=== PATIENT | female | born 1950 | race Asian ===

== ENCOUNTER 2016-11-01 10:46 | Emergency (ER) | payer OTHER ==
[2016-11-01 10:53] VITALS: BP 131/63; PULSE 72; TEMP 98.4; BMI 27.4
[2016-11-01] MEDS ORDERED: KETOROLAC TROMETHAMINE 30 MG/1 ML VIAL IM ONE (11:21)
[2016-11-01] MEDS ORDERED: diazePAM 2 MG TABLET PO ONE (11:21)
--- NOTE | 2016-11-01 11:30 | PDOC ---
History of Present Illness - General Chief Complaint: Back Pain Stated Complaint: BACK PAIN Time Seen by Provider: 11/01/16 11:06 History Source: Patient Exam Limitations: No Limitations - History of Present Illness Initial Comments: 11/01/16 11:25 66 yr female with c/o low back pain since yesterday after lifting something heavy yesterday. Pt has history of low back pain. Pt denies urinary or bowel dysfunction. Pt states pain is worse with sitting to standing, and walking. Occurred: reports: yesterday Severity: reports: moderate Pain Location: reports: back Method of Injury: Yes: other (bent over lifited heavy box) Past History - Past Medical History Allergies/Adverse Reactions: Allergies Allergy/AdvReac Type Severity Reaction Status Date / Time Penicillins Allergy Severe Swelling Verified 11/01/16 10:50 Home Medications: Ambulatory Orders Aspirin [ASA -] 81 mg PO HS 08/07/15 Insulin Glargine,Hum.rec.anlog [Lantus Solostar PEN (NF)] 40 units SQ HS Simvastatin [Zocor] 80 mg PO HS 08/07/15 Enalapril Maleate 5 mg PO HS 04/02/16 Famotidine [Pepcid] 20 mg PO BID #60 tablet 04/02/16 Insulin Lispro [Humalog] 5 unit SQ AM 04/02/16 Diazepam [Valium] 5 mg PO Q8H PRN #15 tablet MDD 15mg 11/01/16 Naproxen [Naprosyn -] 500 mg PO BID PRN #14 tablet 11/01/16 Diabetes: Yes HTN: Yes Hypercholesterolemia: Yes - Psycho/Social/Smoking Cessation Hx Anxiety: No Suicidal Ideation: No Smoking History: Never smoked Have you smoked in the past 12 months: No Information on smoking cessation initiated: No Hx Alcohol Use: No Drug/Substance Use Hx: No Substance Use Type: None Trauma Specific PMHX - Complaint Specific PMHX Arthritis: No Back Injury: (occasional back pain ) Review of Systems - Review of Systems Able to Perform ROS?: Yes Is the patient limited Sinhala proficient: No Constitutional: No: Symptoms Reported HEENTM: No: Symptoms Reported Respiratory: No: Symptoms reported Cardiac (ROS): No: Symptoms Reported, Lightheadedness ABD/GI: No: Symptoms Reported : No: Symptoms Reported Musculoskeletal: Yes: See HPI, Back Pain *Physical Exam - Vital Signs Last Vital Signs Temp Pulse Resp BP Pulse Ox 98.4 F 72 18 131/63 100 11/01/16 10:51 11/01/16 10:51 11/01/16 10:51 11/01/16 10:51 11/01/16 10:51 - Physical Exam General Appearance: Yes: Nourished, Appropriately Dressed HEENT: positive: EOMI, DALE, Normal ENT Inspection, TMs Normal, Pharynx Normal Neck: positive: Supple Respiratory/Chest: positive: Lungs Clear, Normal Breath Sounds Cardiovascular: positive: Regular Rhythm, Regular Rate Gastrointestinal/Abdominal: positive: Normal Bowel Sounds, Soft. negative: Tender Rectal Exam: positive: deferred Musculoskeletal: positive: Normal Inspection, Decreased Range of Motion, Muscle Spasm (lumbar paraspnal left side, no vetebral tendnerness), Other (lumbar paraspinal soft tissue tender to touch, reproducable with pain ). negative: CVA Tenderness, CVA Tenderness (R), CVA Tenderness (L), Vertebral Tenderness Extremity: positive: Normal Capillary Refill, Normal Inspection, Normal Range of Motion Integumentary: positive: Normal Color, Dry, Warm Neurologic: positive: Fully Oriented, Alert, Normal Mood/Affect, Normal Response , Motor Strength 5/5 Medical Decision Making - Medical Decision Making 11/01/16 11:32 cc: low back pain after lifting something heavy bending forward. neg numbness or tingling, neg urine or bowel dysfunction will give toradol and valium pt is with her son who is driving. 11/01/16 12:02 a urine collection was sent with her label on it, the result of the urine in this document is not this patients urine. I had canceled the urine and the sample had been sent already. 11/01/16 12:04 pain reproduced with standing up from the wheel chair, no abd pain neg saddle anesthesia 11/01/16 18:58 *DC/Admit/Observation/Transfer Diagnosis at time of Disposition: Back pain at L4-L5 level - Discharge Dispostion Disposition: HOME Condition at time of disposition: Good - Prescriptions Prescriptions: Naproxen [Naprosyn -] 500 mg PO BID PRN #14 tablet PRN Reason: Back Pain Diazepam [Valium] 5 mg PO Q8H PRN #15 tablet MDD 15mg PRN Reason: Muscle Spasms - Referrals Referrals: Seb De Anda MD [Primary Care Provider] - - Patient Instructions Additional Instructions: please follow with your primary care doctor on Friday for follow up take the medication as prescribed apply warm compresses to lower back , this can help with muscle spasm and pain avoid any heavy lifting and bending, make sure you walk frequently do not lie down for long periods of time
[2016-11-01 11:31] LABS: URINE APPEARANCE CLEAR; URINE BILIRUBIN NEGATIVE (NEGATIVE); URINE COLOR STRAW; URINE GLUCOSE (UA) NEGATIVE (NEGATIVE); URINE KETONE NEGATIVE (NEGATIVE); URINE LEUK ESTERASE NEGATIVE (NEGATIVE); URINE NITRITE NEGATIVE (NEGATIVE); URINE PROTEIN NEGATIVE (NEGATIVE); URINE UROBILINOGEN NEGATIVE mg/dL (0.2-1.0)
[2016-11-01 11:37] LABS: URINE BLOOD 2+ (NEGATIVE)
[2016-11-01 11:41] LABS: URINE MUCUS RARE; URINE RBC 1 /hpf (0-3); URINE WBC 1 /hpf (3-5)
[2016-11-01] MEDS ORDERED: KETOROLAC TROMETHAMINE 60 MG/2 ML VIAL ONE (11:44)
[2016-11-01] MEDS ORDERED: diazePAM 5 MG TABLET ONE (11:44)
[2016-11-01] MEDS ORDERED: KETOROLAC TROMETHAMINE 60 MG/2 ML VIAL IM ONE (11:56)
[2016-11-01] MEDS ORDERED: diazePAM 5 MG TABLET PO ONE (11:56)
== END 2016-11-01 12:11 | disposition home or self-care (01) ==
LOC: JERFT 10:46
PROC: 3E0233Z Introduction of Anti-inflammatory into Muscle, Percutaneous Approach (ICD-10-PCS; principal; 2016-11-01)
DX: M54.5 Low back pain (principal); X50.0XXA Overexertion from strenuous movement or load, initial encounter; X50.9XXA Other and unspecified overexertion or strenuous movements or postures, initial encounter; Y93.89 Activity, other specified; Y92.89 Other specified places as the place of occurrence of the external cause; I10 Essential (primary) hypertension; E78.00 Pure hypercholesterolemia, unspecified; E11.9 Type 2 diabetes mellitus without complications; Z79.4 Long term (current) use of insulin
CPT/HCPCS: 81003; 81015; 96372; 99281-25

== ENCOUNTER 2017-02-06 11:06 | Emergency (ER) | payer OTHER ==
[2017-02-06 11:21] VITALS: BP 136/56; PULSE 84; TEMP 98.4; BMI 27.4
[2017-02-06] MEDS ORDERED: KETOROLAC TROMETHAMINE 30 MG/1 ML VIAL IM ONE (12:45)
[2017-02-06] MEDS ORDERED: KETOROLAC TROMETHAMINE 30 MG/1 ML VIAL ONE (12:54)
[2017-02-06 13:04] LABS: MCH 29.9 pg (25.7-33.7); MCHC 33.1 g/dl (32.0-36.0); MEAN CELL VOLUME 90.4 fl (80-96); MEAN PLT VOLUME 7.5 fl (7.5-11.1); PLATELET COUNT 292 K/MM3 (134-434); RDW 13.7 % (11.6-15.6); WHITE BLOOD COUNT 9.1 K/mm3 (4.0-10.0)
--- NOTE | 2017-02-06 13:20 | PDOC ---
History of Present Illness - General Chief Complaint: Pain, Acute Stated Complaint: BACK/LEG PAIN Time Seen by Provider: 02/06/17 12:20 History Source: Patient Exam Limitations: No Limitations - History of Present Illness Initial Comments: 02/06/17 13:07 66 yr female with c/o right hip, right knee and right lower leg pain. Pt states she has had this for "months" c/o numbness or tingling to her leg at night has history of diabetic neuropathy. Pt denies trauma no abd pain or shortness of breath. no urine or bowel dysfunction. Past History - Past Medical History Allergies/Adverse Reactions: Allergies Allergy/AdvReac Type Severity Reaction Status Date / Time Penicillins Allergy Severe Swelling Verified 02/06/17 11:19 Home Medications: Ambulatory Orders Aspirin [ASA -] 81 mg PO HS 08/07/15 Insulin Glargine,Hum.rec.anlog [Lantus Solostar PEN (NF)] 40 units SQ HS Simvastatin [Zocor] 80 mg PO HS 08/07/15 Enalapril Maleate 5 mg PO HS 04/02/16 Famotidine [Pepcid] 20 mg PO BID #60 tablet 04/02/16 Insulin Lispro [Humalog] 5 unit SQ AM 04/02/16 Diazepam [Valium] 5 mg PO Q8H PRN #15 tablet MDD 15mg 11/01/16 Naproxen [Naprosyn -] 500 mg PO BID PRN #14 tablet 02/06/17 Diabetes: Yes HTN: Yes Hypercholesterolemia: Yes - Suicide/Smoking/Psychosocial Hx Smoking History: Never smoked Have you smoked in the past 12 months: No Hx Alcohol Use: No Drug/Substance Use Hx: No Substance Use Type: None *Physical Exam - Vital Signs Last Vital Signs Temp Pulse Resp BP Pulse Ox 98.4 F 84 19 136/56 99 02/06/17 11:19 02/06/17 11:19 02/06/17 11:19 02/06/17 11:19 02/06/17 11:19 - Physical Exam General Appearance: Yes: Nourished, Appropriately Dressed HEENT: positive: EOMI, DALE, Normal ENT Inspection, TMs Normal, Pharynx Normal Neck: positive: Supple. negative: Tender Respiratory/Chest: positive: Lungs Clear, Normal Breath Sounds Cardiovascular: positive: Regular Rhythm, Regular Rate Gastrointestinal/Abdominal: positive: Normal Bowel Sounds, Soft Musculoskeletal: positive: Normal Inspection. negative: Decreased Range of Motion, Vertebral Tenderness Extremity: positive: Normal Capillary Refill, Normal Inspection, Normal Range of Motion, Other (pain with SLR left side , no vetebral tenderness) Integumentary: positive: Normal Color, Dry, Warm Neurologic: positive: Fully Oriented, Alert, Normal Mood/Affect, Normal Response , Motor Strength 08/23 ED Treatment Course - LABORATORY CBC & Chemistry Diagram: 02/06/17 13:00 02/06/17 13:00 - RADIOLOGY Radiology Studies Ordered: Category Date Time Status HIP & PELVIS-RIGHT [RAD] Stat Radiology 02/06/17 12:45 Ordered KNEE 3 POS-RIGHT [RAD] Stat Radiology 02/06/17 12:45 Ordered DUPLEX VASCUL US-1 LEG [US] Stat Ultrasound 02/06/17 12:46 Ordered - Medications Given in the ED: ED Medications Discontinued Medications Generic Name Dose Route Start Last Admin Trade Name Freq PRN Reason Stop Dose Admin Ketorolac Tromethamine 30 mg 02/06/17 12:45 02/06/17 13:00 Toradol Injection - IM 02/06/17 12:46 30 mg ONCE ONE Administration Medical Decision Making - Medical Decision Making 02/06/17 13:28 cc: right hip pain, knee pain calf pain no deformity , no swelling history of IDDM will get xrays to r/o fracture US is negative xrays are negative for acute fracture or pathology. pt states her pain has improved after toradol, is ambulating steady gait dc inst verbally discussed with the pt all questions asked and answered. Pt is to see her PMD tomorrow. 02/06/17 18:10 *DC/Admit/Observation/Transfer Diagnosis at time of Disposition: Leg pain Qualifiers: Laterality: right Qualified Code(s): M79.604 - Pain in right leg - Discharge Dispostion Disposition: HOME Condition at time of disposition: Good - Prescriptions Prescriptions: Naproxen [Naprosyn -] 500 mg PO BID PRN #14 tablet PRN Reason: Back Pain - Referrals Referrals: Seb De Anda MD [Primary Care Provider] - - Patient Instructions Additional Instructions: please follow with your primary care doctor for follow up tomorrow or Friday take naprosyn as directed for pain try to place warm heating pad to the lower legs to help with night time numbness and tingling
[2017-02-06 13:31] LABS: ALBUMIN 3.8 g/dl (3.4-5.0); ANION GAP 5 (8-16); BILIRUBIN,TOTAL 0.3 mg/dL (0.2-1.0); CO2 30 mmol/L (21-32); CREATININE 0.8 mg/dL (0.55-1.02); GLUCOSE,RANDOM 153 mg/dL (74-106); SGOT/AST 26 U/L (15-37); SGPT/ALT 32 U/L (12-78); TOT PROT 8.1 g/dl (6.4-8.2)
[2017-02-06 13:32] LABS: ALK PHOS 70 U/L (45-117)
== END 2017-02-06 15:39 | disposition home or self-care (01) ==
LOC: JERFT 11:06
PROC: 3E0233Z Introduction of Anti-inflammatory into Muscle, Percutaneous Approach (ICD-10-PCS; principal; 2017-02-06)
DX: M79.604 Pain in right leg (principal)
CPT/HCPCS: 36415; 73523-TC; 73562-TC-RT; 80053; 85027; 93971-TC; 99281-25

== ENCOUNTER 2017-05-11 11:53 | Emergency (ER) | payer OTHER ==
[2017-05-11 12:42] VITALS: BMI 27.4
--- NOTE | 2017-05-11 12:45 | PDOC ---
History of Present Illness - General Chief Complaint: Cold Symptoms Stated Complaint: SHOULDER PAIN, BODYACHES Time Seen by Provider: 05/11/17 12:43 History Source: Patient Exam Limitations: No Limitations - History of Present Illness Initial Comments: CHIEF COMPLAINT: 67 y/o febrile, tachycardic female with PMH HTN, HLD, CAD (on aspirin), IDDM c/o chest pain, jaw pain and runny nose x 3 days. HISTORY OF PRESENT ILLNESS: The patient states she also has left arm pain. She denies fever/chills at home, cough, n/v/d, SOB, abd pain, back pain. She finished a prescription for cipro to treat a UTI 3 days ago but she continues to complain of pain with urination. PCP is Dr. De Anda Manufacturing Process Engineer is Dr. Moyer. Vital signs on arrival are notable for pulse of 112 secondary to temp of 102.6. REVIEW OF SYSTEMS: GENERAL/CONSTITUTIONAL: No fever/chills. No weakness. No weight change. HEAD, EYES, EARS, NOSE AND THROAT: No change in vision. +jaw pain. No sore throat. +runny nose CARDIOVASCULAR: +chest pain. No shortness of breath. RESPIRATORY: No cough, wheezing, or hemoptysis. GASTROINTESTINAL: No nausea, vomiting, diarrhea. GENITOURINARY: +dysuria. No frequency or hematuria. MUSCULOSKELETAL: +left shoulder pain. No neck or back pain. SKIN: No rash or easy bruising. NEUROLOGIC: No headache, vertigo, loss of consciousness, or loss of sensation. PHYSICAL EXAM: GENERAL: The patient is awake, alert, and fully oriented, in no acute distress. She is non toxic appearing and ambulatory. HEAD: Normal with no signs of trauma. ENT: Pupils equal, round and reactive to light, extraocular movements intact, sclera anicteric, conjunctiva clear. Neck supple. LUNGS: Clear to auscultation bilaterally. Normal excursion. No respiratory distress or use of accessory muscles. CV: tachycardic with regular rhythm, S1/S2, no MRG. Cap refill < 2 sec. ABDOMEN: Soft, non-distended, no hepatomegaly or splenomegaly, no masses. TTP of RLQ and LLQ. No rebound, guarding or rigidity. EXTREMITIES: Normal range of motion, no edema. NEUROLOGICAL: Normal speech, normal gait. CN II-XII grossly intact. PSYCH: Normal mood, normal affect. SKIN: Warm, dry, normal turgor, no rashes or lesions noted. Past History - Past Medical History Allergies/Adverse Reactions: Allergies Allergy/AdvReac Type Severity Reaction Status Date / Time Penicillins Allergy Severe Swelling Verified 05/11/17 12:39 Home Medications: Ambulatory Orders Aspirin [ASA -] 81 mg PO HS 08/07/15 Insulin Glargine,Hum.rec.anlog [Lantus Solostar PEN (NF)] 40 units SQ HS Simvastatin [Zocor] 80 mg PO HS 08/07/15 Enalapril Maleate 5 mg PO HS 04/02/16 Famotidine [Pepcid] 20 mg PO BID #60 tablet 04/02/16 Insulin Lispro [Humalog] 5 unit SQ AM 04/02/16 Diazepam [Valium] 5 mg PO Q8H PRN #15 tablet MDD 15mg 11/01/16 Naproxen [Naprosyn -] 500 mg PO BID PRN #14 tablet 02/06/17 COPD: No Diabetes: Yes HTN: Yes Hypercholesterolemia: Yes - Suicide/Smoking/Psychosocial Hx Smoking History: Never smoked Have you smoked in the past 12 months: No Information on smoking cessation initiated: No Hx Alcohol Use: No Drug/Substance Use Hx: No Substance Use Type: None *Physical Exam - Vital Signs Last Vital Signs Temp Pulse Resp BP Pulse Ox 102.6 F H 112 H 18 148/87 100 05/11/17 12:39 05/11/17 12:39 05/11/17 12:39 05/11/17 12:39 05/11/17 12:39 Heart Score/ECG Review - ECG Intrepretation Comment:: Twelve-lead EKG was performed and reviewed by Dr. Gillette. There is sinus tachycardia. The axis is normal. The intervals are normal. Non specific ST and T wave abnormality. Impression: Abnormal twelve-lead EKG ED Treatment Course - LABORATORY CBC & Chemistry Diagram: 05/11/17 13:20 05/11/17 13:20 Medical Decision Making - Medical Decision Making A/P: 67 y/o febrile, tachycardic female c/o chest pain, left arm pain, jaw pain and runny nose x 3 days. Will do cardiac workup as well as sepsis work up. Ordered 975mg of tylenol. Influenza A&B - negative CXR IMPRESSION: No acute pathology. I am signing this patient out to my colleague: LJ Zafar In brief, this patient is being seen in the ED for a chief complaint of: chest pain, left shoulder pain, jaw pain I have completed the initial assessment interview note and have ordered: labs, UA, CXR, abd/pelvis CT I have reviewed the following results: labs, UA, CXR Pending results are: CT abd/pelvis Please call the PCP: Dr. De Anda Plan for disposition is as follows: Pending *DC/Admit/Observation/Transfer Diagnosis at time of Disposition: Fever Qualifiers: Fever type: unspecified Qualified Code(s): R50.9 - Fever, unspecified - Referrals Referrals: Chriss Roblero MD [Primary Care Provider] - - Patient Instructions - Post Discharge Activity
[2017-05-11] MEDS ORDERED: SODIUM CHLORIDE 1,000 ML IV STA ×2 (13:01→16:43)
[2017-05-11] MEDS ORDERED: ACETAMINOPHEN 325 MG TABLET (FP) PO ONE (13:03)
[2017-05-11] MEDS ORDERED: ACETAMINOPHEN 325 MG TABLET (FP) ONE (13:07)
[2017-05-11 13:40] LABS: BASO % 0.3 % (0-2.0); EOS % 0.2 % (0-4.5); HEMATOCRIT 35.9 % (32.4-45.2); HEMOGLOBIN 11.5 GM/dL (10.7-15.3); LYMPH % 5.5 % (8-40); MCH 29.4 pg (25.7-33.7); MEAN CELL VOLUME 91.9 fl (80-96); MEAN PLT VOLUME 8.2 fl (7.5-11.1); PLATELET COUNT 298 K/MM3 (134-434); RDW 13.9 % (11.6-15.6); WHITE BLOOD COUNT 12.1 K/mm3 (4.0-10.0)
[2017-05-11 14:10] LABS: ALBUMIN 3.7 g/dl (3.4-5.0); ANION GAP 9 (8-16); BILIRUBIN,TOTAL 0.5 mg/dL (0.2-1.0); BLOOD UREA NITROGEN 9 mg/dL (7-18); CHLORIDE 100 mmol/L (98-107); CO2 26 mmol/L (21-32); CREATININE 0.9 mg/dL (0.55-1.02); GLUCOSE,RANDOM 102 mg/dL (74-106); SGPT/ALT 34 U/L (12-78); SODIUM 135 mmol/L (136-145); TOT PROT 8.3 g/dl (6.4-8.2)
[2017-05-11 14:12] LABS: ALK PHOS 65 U/L (45-117)
[2017-05-11 14:13] LABS: POTASSIUM 5.3 mmol/L (3.5-5.1); SGOT/AST 39 U/L (15-37)
--- NOTE | 2017-05-11 16:02 | EKG ---
Test Reason : Blood Pressure : / mmHG Vent. Rate : 107 BPM Atrial Rate : 107 BPM P-R Int : 130 ms QRS Dur : 076 ms QT Int : 314 ms P-R-T Axes : 046 000 025 degrees QTc Int : 419 ms SINUS TACHYCARDIA NONSPECIFIC ST AND T WAVE ABNORMALITY ABNORMAL ECG WHEN COMPARED WITH ECG OF 02-APR-2016 18:37, VENT. RATE HAS INCREASED BY 41 BPM NONSPECIFIC T WAVE ABNORMALITY NOW EVIDENT IN ANTERIOR LEADS Confirmed by Derrick Zamorano ([id number]) on 05/11/2017 4:02:45 PM Referred By: Confirmed By:Derrick Zamorano
[2017-05-11 16:26] LABS: URINE APPEARANCE CLOUDY; URINE BILIRUBIN NEGATIVE (NEGATIVE); URINE BLOOD NEGATIVE (NEGATIVE); URINE COLOR DKYELLOW; URINE GLUCOSE (UA) NEGATIVE (NEGATIVE); URINE KETONE NEGATIVE (NEGATIVE); URINE NITRITE NEGATIVE (NEGATIVE); URINE PROTEIN NEGATIVE (NEGATIVE); URINE UROBILINOGEN NEGATIVE mg/dL (0.2-1.0)
[2017-05-11 16:39] LABS: INR 1.14 (0.82-1.09); PROTHROMBIN TIME (PATIENT) 12.9 SEC (9.98-11.88)
[2017-05-11 17:01] LABS: URINE LEUK ESTERASE 2+ (NEGATIVE)
[2017-05-11 17:02] LABS: EPI CELLS RARE /HPF (FEW); URINE BACTERIA MODERATE /hpf (NONE SEEN); URINE HYALINE CAST 1 /lpf; YEAST FEW
--- NOTE | 2017-05-11 19:32 | PDOC ---
*Physical Exam - Vital Signs Last Vital Signs Temp Pulse Resp BP Pulse Ox 98.3 F 74 18 96/53 97 05/11/17 16:47 05/11/17 16:47 05/11/17 16:47 05/11/17 16:47 05/11/17 16:47 ED Treatment Course - LABORATORY CBC & Chemistry Diagram: 05/11/17 13:20 05/11/17 13:20 - ADDITIONAL ORDERS Additional order review: Laboratory Results 05/11/17 05/11/17 05/11/17 16:10 16:10 16:10 PT with INR 12.90 H INR 1.14 PTT (Actin FS) Sodium Potassium Chloride Carbon Dioxide Anion Gap BUN Creatinine Creat Clearance w eGFR Random Glucose Lactic Acid 1.6 Calcium Total Bilirubin AST ALT Alkaline Phosphatase Creatine Kinase Troponin I Total Protein Albumin Urine Color Urine Appearance Urine pH Ur Specific [place] Urine Protein Urine Glucose (UA) Urine Ketones Urine Blood Urine Nitrite Urine Bilirubin Urine Urobilinogen Ur Leukocyte Esterase Urine WBC (Auto) Urine RBC (Auto) Ur Epithelial Cells Urine Bacteria Hyaline Casts Urine Yeast Blood Type A NEGATIVE Antibody Screen Negative 05/11/17 05/11/17 05/11/17 13:20 13:20 13:20 PT with INR INR PTT (Actin FS) Sodium 135 L Potassium 5.3 H Chloride 100 Carbon Dioxide 26 Anion Gap 9 BUN 9 Creatinine 0.9 Creat Clearance w eGFR > 60 Random Glucose 102 Lactic Acid 2.2 H* Calcium 9.0 Total Bilirubin 0.5 D AST 39 H ALT 34 Alkaline Phosphatase 65 Creatine Kinase 124 Troponin I < 0.02 Total Protein 8.3 H Albumin 3.7 Urine Color Urine Appearance Urine pH Ur Specific [place] Urine Protein Urine Glucose (UA) Urine Ketones Urine Blood Urine Nitrite Urine Bilirubin Urine Urobilinogen Ur Leukocyte Esterase Urine WBC (Auto) Urine RBC (Auto) Ur Epithelial Cells Urine Bacteria Hyaline Casts Urine Yeast Blood Type Cancelled Antibody Screen Cancelled 05/11/17 05/11/17 13:20 13:05 PT with INR Cancelled INR Cancelled PTT (Actin FS) Cancelled Sodium Potassium Chloride Carbon Dioxide Anion Gap BUN Creatinine Creat Clearance w eGFR Random Glucose Lactic Acid Calcium Total Bilirubin AST ALT Alkaline Phosphatase Creatine Kinase Troponin I Total Protein Albumin Urine Color Dkyellow Urine Appearance Cloudy Urine pH 7.0 Ur Specific [place] 1.004 Urine Protein Negative Urine Glucose (UA) Negative Urine Ketones Negative Urine Blood Negative Urine Nitrite Negative Urine Bilirubin Negative Urine Urobilinogen Negative Ur Leukocyte Esterase 2+ H Urine WBC (Auto) 30 Urine RBC (Auto) <1 Ur Epithelial Cells Rare Urine Bacteria Moderate Hyaline Casts 1 Urine Yeast Few Blood Type Antibody Screen 05/11/17 13:05 Influenza Types A,B Antigen (JASS) - Final Nasopharyngeal Swab - Final 05/11/17 13:20 RBC 3.90 MCV 91.9 MCHC 32.0 RDW 13.9 MPV 8.2 Neutrophils % 89.0 H D Lymphocytes % 5.5 L D Monocytes % 5.0 Eosinophils % 0.2 D Basophils % 0.3 - Medications Given in the ED: ED Medications Discontinued Medications Generic Name Dose Route Start Last Admin Trade Name Freq PRN Reason Stop Dose Admin Acetaminophen 975 mg 05/11/17 13:03 05/11/17 13:46 Tylenol - PO 05/11/17 13:04 975 mg ONCE ONE Administration Sodium Chloride 1,000 mls @ 1,000 mls/hr 05/11/17 13:01 05/11/17 13:55 Normal Saline - IV 05/11/17 14:00 1,000 mls/hr ASDIR STA Administration Sodium Chloride 1,000 mls @ 1,000 mls/hr 05/11/17 16:43 05/11/17 16:56 Normal Saline - IV 05/11/17 17:42 1,000 mls/hr ASDIR STA Administration Medical Decision Making - Medical Decision Making 05/11/17 19:57 Rec'd pt from [facility]. CTAP as read by Dr. Toure: Patchy areas of pulmonary consolidation in lung bases bilaterally. Atelectesis vs infiltrate vs both. Probable small calcified granuloma in the right middle lobe. There are colonic diverticula without radiographic evidence of diverticulitis. Previous hysterectomy. No evidence of pneumoperitoneum or free fluid. Radiographic and labratory evidence of CAP. CURB 65 score- 1. Case d/w Dr Phillips who agrees with outpt treatment of CAP. Given pt has mild pyuria, I will treat pt with levofloxacin 500mg daily x10 days. Pt's PMD will re- evaluate in 2 days. *DC/Admit/Observation/Transfer Diagnosis at time of Disposition: Fever Qualifiers: Fever type: unspecified Qualified Code(s): R50.9 - Fever, unspecified Pneumonia Qualifiers: Pneumonia type: due to unspecified organism Laterality: bilateral Lung location : lower lobe of lung Qualified Code(s): J18.9 - Pneumonia, unspecified organism - Discharge Dispostion Disposition: HOME Condition at time of disposition: Stable Admit: No - Prescriptions Prescriptions: Levofloxacin [Levaquin -] 500 mg PO DAILY #10 tablet - Referrals Referrals: Chriss Roblero MD [Primary Care Provider] - - Patient Instructions Additional Instructions: Take levofloxacin 500mg daily for the next 10 days. Take Tylenol or Motrin for fevers or pain. Follow costumer assistant's instructions for dosage. Make an appointment with your doctor for care on FridayMay 13. Return to ER for fevers, chills, shortness of breath, chest pain, nausea, vomiting, or any other concerns. - Post Discharge Activity
[2017-05-11 20:01] VITALS: BP 154/87; PULSE 92; TEMP 98.1
[2017-05-11] MEDS ORDERED: IBUPROFEN 600 MG TABLET (FP) PO ONE ×2 (20:15→20:28)
--- NOTE | 2017-05-12 09:12 | PDOC ---
Patient Follow-up (Call Back) - Post ED Follow - Up Condition at time of discharge: Stable Disposition at time of original discharge: HOME Reason for Call Back: Abnwl. Microbiology (gram neg bacilli on prelim bld cx Pt was discharged w/ bindu for PNA Spoke to pt, has not started bx yet, feeling fatigued Told to return [facility]. Pt states he will come back today)
== END 2017-05-11 21:20 | disposition home or self-care (01) ==
LOC: JER 11:53
PROC: 3E0337Z Introduction of Electrolytic and Water Balance Substance into Peripheral Vein, Percutaneous Approach (ICD-10-PCS; principal; 2017-05-11)
DX: R50.9 Fever, unspecified (principal); I10 Essential (primary) hypertension; E11.9 Type 2 diabetes mellitus without complications; Z79.4 Long term (current) use of insulin; Z79.82 Long term (current) use of aspirin
CPT/HCPCS: 36415; 71045-TC; 74177-TC; 80053; 81003; 81015; 82550; 83605; 84484; 85025; 85610; 86850; 86900; 86901; 87040; 87086; 87186; 87804; 93005; 93010; 96360; 96361; 99283-25

== ENCOUNTER 2017-05-12 09:35 | Inpatient (IN) | payer OTHER ==
[2017-05-12] MEDS ORDERED: ACETAMINOPHEN 325 MG TABLET (FP) PO ONE ×2 (09:44→13:17)
[2017-05-12] MEDS ORDERED: SODIUM CHLORIDE 1,000 ML IV STA (13:16)
--- NOTE | 2017-05-12 13:32 | PDOC ---
History of Present Illness - General Chief Complaint: SIRS, Suspected/Possible Stated Complaint: + bl cultures LAB VARIANCE Time Seen by Provider: 05/12/17 13:14 History Source: Patient - History of Present Illness Associated Symptoms: reports: chest pain/soreness, cough, fever/chills, headache. denies: nasal congestion, shortness of breath, sore throat, wheezing Past History - Past Medical History Allergies/Adverse Reactions: Allergies Allergy/AdvReac Type Severity Reaction Status Date / Time Penicillins Allergy Severe Swelling Verified 05/12/17 09:39 Home Medications: Ambulatory Orders Aspirin [ASA -] 81 mg PO HS 08/07/15 Insulin Glargine,Hum.rec.anlog [Lantus Solostar PEN (NF)] 40 units SQ HS Simvastatin [Zocor] 80 mg PO HS 08/07/15 Enalapril Maleate 5 mg PO HS 04/02/16 Famotidine [Pepcid] 20 mg PO BID #60 tablet 04/02/16 Insulin Lispro [Humalog] 5 unit SQ AM 04/02/16 Diazepam [Valium] 5 mg PO Q8H PRN #15 tablet MDD 15mg 11/01/16 Naproxen [Naprosyn -] 500 mg PO BID PRN #14 tablet 02/06/17 Levofloxacin [Levaquin -] 500 mg PO DAILY #10 tablet 05/11/17 COPD: No Diabetes: Yes HTN: Yes Hypercholesterolemia: Yes - Suicide/Smoking/Psychosocial Hx Smoking History: Never smoked Have you smoked in the past 12 months: No Information on smoking cessation initiated: No Hx Alcohol Use: No Drug/Substance Use Hx: No Substance Use Type: None Review of Systems - Review of Systems Constitutional: Yes: Chills, Fever, Malaise Respiratory: Yes: Cough. No: Shortness of Breath, Wheezing ABD/GI: No: Diarrhea, Nausea, Vomiting Neurological: Yes: Headache *Physical Exam - Vital Signs Last Vital Signs Temp Pulse Resp BP Pulse Ox 101.1 F H 93 H 18 117/61 100 05/12/17 09:40 05/12/17 09:40 05/12/17 09:40 05/12/17 09:40 05/12/17 09:40 - Physical Exam Comments: 05/12/17 13:39 appears uncomfortable General Appearance: Yes: Appropriately Dressed. No: Apparent Distress HEENT: positive: Normal Voice Neck: positive: Supple Respiratory/Chest: positive: Lungs Clear, Normal Breath Sounds. negative: Respiratory Distress Gastrointestinal/Abdominal: positive: Soft. negative: Tender Integumentary: positive: Dry, Warm Neurologic: positive: Fully Oriented, Alert, Normal Mood/Affect ED Treatment Course - LABORATORY CBC & Chemistry Diagram: 05/12/17 13:36 05/12/17 13:36 - RADIOLOGY Radiology Studies Ordered: Category Date Time Status CHEST X-RAY PORTABLE* [RAD] Stat Radiology 05/12/17 13:16 Ordered - Medications Given in the ED: ED Medications Discontinued Medications Generic Name Dose Route Start Last Admin Trade Name Freq PRN Reason Stop Dose Admin Acetaminophen 975 mg 05/12/17 09:44 05/12/17 09:45 Tylenol - PO 05/12/17 09:45 975 mg NOW ONE Administration Medical Decision Making - Medical Decision Making 05/12/17 13:31 67-year-old female, history of hypertension, hyperlipidemia, diabetes, CAD, returns to ED today after being contacted this a.m. with non-lactose fermenting gram-negative bacteria on preliminary blood culture. Patient was seen in ED yesterday for malaise with BUNN, fever and cough and was diagnosed with pneumonia. Was sent home on Levaquin given low CURB-65 score. Pt has not started taking abx and continues to have cough, CP, fever and body aches. Denies SOB. Of note, patient was flu negative yesterday. See exam Sepsis 2/2 PNA Febrile in ED and appears uncomfortable but no e/o resp distress -IV abx -antipyretic -IVF -labs including lactate and rpt bld cx -admit 05/12/17 13:46 05/12/17 14:37 White count 12.9 w/ pO2 of 17 on VBG. Lactate neg. Antibiotics in progress. Case discussed with Dr. Roblero and patient admitted 05/12/17 14:38 *DC/Admit/Observation/Transfer Diagnosis at time of Disposition: Pneumonia Qualifiers: Pneumonia type: due to unspecified organism Laterality: unspecified laterality Lung location: unspecified part of lung Qualified Code(s): J18.9 - Pneumonia, unspecified organism - Discharge Dispostion Condition at time of disposition: Fair Admit: Yes - Referrals Referrals: Chriss Roblero MD [Primary Care Provider] - - Patient Instructions - Post Discharge Activity
[2017-05-12] MEDS ORDERED: METOCLOPRAMIDE HCL INJECTION 10 MG/2 ML VIAL IVPB ONE (13:40)
[2017-05-12] MEDS ORDERED: LEVOFLOXACIN 750 MG IVPB 750 MG/150 ML BAG IVPB ONE ×2 (13:44→14:33)
[2017-05-12] MEDS ORDERED: ACETAMINOPHEN 325 MG TABLET (FP) ONE (13:49)
[2017-05-12 13:50] LABS: VENOUS PC02 50.2 mmHg (38-52); VENOUS PH 7.35 (7.32-7.42)
[2017-05-12] MEDS ORDERED: METOCLOPRAMIDE HCL INJECTION 10 MG/2 ML VIAL ONE (13:50)
[2017-05-12 13:51] LABS: VENOUS PO2 17.6 mmHg (28-48)
[2017-05-12 13:53] LABS: BASO % 0.3 % (0-2.0); EOS % 0.1 % (0-4.5); HEMATOCRIT 33.9 % (32.4-45.2); HEMOGLOBIN 10.9 GM/dL (10.7-15.3); LYMPH % 13.6 % (8-40); MCH 29.9 pg (25.7-33.7); MEAN CELL VOLUME 93.3 fl (80-96); MEAN PLT VOLUME 7.8 fl (7.5-11.1); MONO % 6.1 % (3.8-10.2); NEUT % 79.9 % (42.8-82.8); PLATELET COUNT 261 K/MM3 (134-434); RBC 3.64 M/mm3 (3.60-5.2); RDW 13.9 % (11.6-15.6); WHITE BLOOD COUNT 12.9 K/mm3 (4.0-10.0)
[2017-05-12 14:06] LABS: URINE APPEARANCE CLEAR; URINE BILIRUBIN NEGATIVE (NEGATIVE); URINE BLOOD NEGATIVE (NEGATIVE); URINE COLOR YELLOW; URINE GLUCOSE (UA) NEGATIVE (NEGATIVE); URINE KETONE NEGATIVE (NEGATIVE); URINE LEUK ESTERASE TRACE (NEGATIVE); URINE NITRITE NEGATIVE (NEGATIVE); URINE UROBILINOGEN NEGATIVE mg/dL (0.2-1.0)
[2017-05-12 14:08] LABS: URINE PROTEIN 1+ (NEGATIVE)
[2017-05-12 14:08] LABS: INR 1.27 (0.82-1.09); PROTHROMBIN TIME (PATIENT) 14.3 SEC (9.98-11.88)
[2017-05-12 14:09] LABS: EPI CELLS RARE /HPF (FEW); URINE MUCUS RARE
[2017-05-12 14:11] LABS: ACTIVATED PTT 29.9 SECONDS (26.9-34.4); ALBUMIN 3.3 g/dl (3.4-5.0); ANION GAP 4 (8-16); BLOOD UREA NITROGEN 8 mg/dL (7-18); CHLORIDE 106 mmol/L (98-107); CO2 29 mmol/L (21-32); CREATININE 0.9 mg/dL (0.55-1.02); GLUCOSE,RANDOM 52 mg/dL (74-106); POTASSIUM 3.5 mmol/L (3.5-5.1); SGOT/AST 21 U/L (15-37); SGPT/ALT 29 U/L (12-78); SODIUM 139 mmol/L (136-145)
--- NOTE | 2017-05-12 14:11 | PDOC ---
*Physical Exam - Vital Signs Last Vital Signs Temp Pulse Resp BP Pulse Ox 101.1 F H 93 H 18 117/61 100 05/12/17 09:40 05/12/17 09:40 05/12/17 09:40 05/12/17 09:40 05/12/17 09:40 ED Treatment Course - LABORATORY CBC & Chemistry Diagram: 05/12/17 13:36 05/12/17 13:36 - ADDITIONAL ORDERS Additional order review: Laboratory Results 05/12/17 05/12/17 13:50 13:22 VBG pH 7.35 POC VBG pCO2 50.2 POC VBG pO2 17.6 L* Mixed VBG HCO3 27.1 H Urine Color Yellow Urine Appearance Clear Urine pH 6.0 Ur Specific [place] 1.017 Urine Protein 1+ H Urine Glucose (UA) Negative Urine Ketones Negative Urine Blood Negative Urine Nitrite Negative Urine Bilirubin Negative Urine Urobilinogen Negative Ur Leukocyte Esterase Trace Urine WBC (Auto) 13 Urine RBC (Auto) 1 Ur Epithelial Cells Rare Urine Mucus Rare 05/12/17 13:36 RBC 3.64 MCV 93.3 MCHC 32.0 RDW 13.9 MPV 7.8 Neutrophils % 79.9 Lymphocytes % 13.6 D Monocytes % 6.1 Eosinophils % 0.1 Basophils % 0.3 - Medications Given in the ED: ED Medications Discontinued Medications Generic Name Dose Route Start Last Admin Trade Name Kina PRN Reason Stop Dose Admin Acetaminophen 975 mg 05/12/17 09:44 05/12/17 09:45 Tylenol - PO 05/12/17 09:45 975 mg NOW ONE Administration Acetaminophen 650 mg 05/12/17 13:17 05/12/17 13:54 Tylenol - PO 05/12/17 13:18 650 mg ONCE ONE Administration Metoclopramide HCl 10 mg 05/12/17 13:40 05/12/17 13:55 Reglan Injection - IVPB 05/12/17 13:41 10 mg ONCE ONE Administration Medical Decision Making - Medical Decision Making 05/12/17 14:10 Pt seen by the Advanced Practice Provider under my direct supervision Ancillary studies reviewed I agree with plan as outlined by the Advanced Practice Provider EB Talamantes *DC/Admit/Observation/Transfer Diagnosis at time of Disposition: Pneumonia Qualifiers: Pneumonia type: due to unspecified organism Laterality: unspecified laterality Lung location: unspecified part of lung Qualified Code(s): J18.9 - Pneumonia, unspecified organism - Discharge Dispostion Condition at time of disposition: Fair - Referrals Referrals: Chriss Roblero MD [Primary Care Provider] - - Patient Instructions - Post Discharge Activity
[2017-05-12 14:15] LABS: ALK PHOS 63 U/L (45-117); BILIRUBIN,TOTAL 0.6 mg/dL (0.2-1.0); TOT PROT 7.4 g/dl (6.4-8.2)
--- NOTE | 2017-05-12 14:39 | PDOC ---
*Physical Exam - Vital Signs Last Vital Signs Temp Pulse Resp BP Pulse Ox 101.1 F H 93 H 18 117/61 100 05/12/17 09:40 05/12/17 09:40 05/12/17 09:40 05/12/17 09:40 05/12/17 09:40 ED Treatment Course - LABORATORY CBC & Chemistry Diagram: 05/12/17 13:36 05/12/17 13:36 - ADDITIONAL ORDERS Additional order review: Laboratory Results 05/12/17 05/12/17 05/12/17 13:50 13:36 13:36 VBG pH POC VBG pCO2 POC VBG pO2 Mixed VBG HCO3 Sodium 139 Potassium 3.5 Chloride 106 Carbon Dioxide 29 Anion Gap 4 L BUN 8 Creatinine 0.9 Creat Clearance w eGFR > 60 Random Glucose 52 L Lactic Acid 0.9 Calcium 8.0 L Total Bilirubin 0.6 AST 21 ALT 29 Alkaline Phosphatase 63 Creatine Kinase 80 Troponin I < 0.02 Total Protein 7.4 Albumin 3.3 L Urine Color Yellow Urine Appearance Clear Urine pH 6.0 Ur Specific [place] 1.017 Urine Protein 1+ H Urine Glucose (UA) Negative Urine Ketones Negative Urine Blood Negative Urine Nitrite Negative Urine Bilirubin Negative Urine Urobilinogen Negative Ur Leukocyte Esterase Trace Urine WBC (Auto) 13 Urine RBC (Auto) 1 Ur Epithelial Cells Rare Urine Mucus Rare 05/12/17 13:22 VBG pH 7.35 POC VBG pCO2 50.2 POC VBG pO2 17.6 L* Mixed VBG HCO3 27.1 H Sodium Potassium Chloride Carbon Dioxide Anion Gap BUN Creatinine Creat Clearance w eGFR Random Glucose Lactic Acid Calcium Total Bilirubin AST ALT Alkaline Phosphatase Creatine Kinase Troponin I Total Protein Albumin Urine Color Urine Appearance Urine pH Ur Specific [place] Urine Protein Urine Glucose (UA) Urine Ketones Urine Blood Urine Nitrite Urine Bilirubin Urine Urobilinogen Ur Leukocyte Esterase Urine WBC (Auto) Urine RBC (Auto) Ur Epithelial Cells Urine Mucus 05/12/17 13:36 RBC 3.64 MCV 93.3 MCHC 32.0 RDW 13.9 MPV 7.8 Neutrophils % 79.9 Lymphocytes % 13.6 D Monocytes % 6.1 Eosinophils % 0.1 Basophils % 0.3 - RADIOLOGY Radiology Studies Ordered: Category Date Time Status CHEST X-RAY PORTABLE* [RAD] Stat Radiology 05/12/17 13:16 Ordered - Medications Given in the ED: ED Medications Discontinued Medications Generic Name Dose Route Start Last Admin Trade Name Kina PRN Reason Stop Dose Admin Acetaminophen 975 mg 05/12/17 09:44 05/12/17 09:45 Tylenol - PO 05/12/17 09:45 975 mg NOW ONE Administration Acetaminophen 650 mg 05/12/17 13:17 05/12/17 13:54 Tylenol - PO 05/12/17 13:18 650 mg ONCE ONE Administration Sodium Chloride 1,000 mls @ 1,000 mls/hr 05/12/17 13:16 05/12/17 13:54 Normal Saline - IV 05/12/17 14:15 1,000 mls/hr ASDIR STA Administration Metoclopramide HCl 10 mg 05/12/17 13:40 05/12/17 13:55 Reglan Injection - IVPB 05/12/17 13:41 10 mg ONCE ONE Administration *DC/Admit/Observation/Transfer Diagnosis at time of Disposition: Pneumonia Qualifiers: Pneumonia type: due to unspecified organism Laterality: unspecified laterality Lung location: unspecified part of lung Qualified Code(s): J18.9 - Pneumonia, unspecified organism - Discharge Dispostion Condition at time of disposition: Fair Admit: Yes - Referrals Referrals: Chriss Roblero MD [Primary Care Provider] - - Patient Instructions - Post Discharge Activity
[2017-05-12] MEDS ORDERED: AZTREONAM 1 GM/10 ML SYRINGE (RESTRICTED TO ID) IVPUSH ONE (14:45)
[2017-05-12] MEDS ORDERED: SODIUM CHLORIDE 1,000 ML IV SCH (17:30)
--- NOTE | 2017-05-12 17:33 | HP ---
Admitting History and Physical - Primary Care Physician PCP: Chriss Roblero - Admission Chief Complaint: Called back for abnormal blood culture History of Present Illness: 67 yrs old F with H/O HTN, T2DM on Insulin, CAD s/p PCI , Dyslipedemia, has been having UTI for past few months completed multiple course of Abx recently completed Ciproflaxacin 1 wk ago on visited Ed with dysuria, Rt CVA pain, nausea, fever and chills,patient was Dc Home on Po Levofloxacin blood culture drawan in Ed grew GNB non fermenters called back for evaluation, patient still c/o fever, cough, dysuria, Rt CVA tenderness, no c/o chest pain, SOB or palpitation. - Past Medical History Cardiovascular: Yes: CAD, HTN, Hyperlipdemia Endocrine: Yes: Diabetes Mellitus - Smoking History Smoking history: Never smoked Have you smoked in the past 12 months: No - Alcohol/Substance Use Hx Alcohol Use: No Home Medications - Allergies Allergies/Adverse Reactions: Allergies Allergy/AdvReac Type Severity Reaction Status Date / Time Penicillins Allergy Severe Swelling Verified 05/12/17 09:39 - Home Medications Home Medications: Ambulatory Orders Aspirin [ASA -] 81 mg PO DAILY 05/12/17 Atorvastatin Ca [Lipitor] 40 mg PO DAILY 05/12/17 Calcium Carbonate/Vitamin D3 [Calcium 600-Vit D3 400 Tablet] 1 each PO DAILY Famotidine [Pepcid] 20 mg PO BID 05/12/17 Gabapentin 300 mg PO DAILY 05/12/17 Glipizide 10 mg PO BID 05/12/17 Insulin Glargine,Hum.rec.anlog [Lantus] 60 unit SQ AM 05/12/17 Insulin Lispro [Humalog] 5 unit SQ BID 05/12/17 Linagliptin [Tradjenta] 5 mg PO DAILY 05/12/17 Losartan Potassium [Cozaar -] 50 mg PO BID 05/12/17 Nebivolol [Bystolic -] 5 mg PO DAILY 05/12/17 Family Disease History - Family Disease History Family History: Unremarkable Review of Systems - Review of Systems Constitutional: reports: Chills, Diaphoresis, Fever Eyes: denies: Blurred Vision, Double Vision HENT: denies: Difficult Swallowing, Ear Discharge, Ear Pain Neck: denies: Decreased ROM Cardiovascular: denies: Chest Pain, Edema, Palpitations Respiratory: reports: Cough. denies: Exercise Intolerance, Hemoptysis Gastrointestinal: reports: Abdominal Pain Genitourinary: reports: Dysuria, Flank Pain. 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 Code(s): N39.0 - URINARY TRACT INFECTION, SITE NOT SPECIFIED (2) Sepsis Assessment/Plan: Due to UTI most likely GNB Cont IV Abx F/U culture report Code(s): A41.9 - SEPSIS, UNSPECIFIED ORGANISM (3) T2DM (type 2 diabetes mellitus) Assessment/Plan: Hold PO meds cont Lantus and correction dose insulin Code(s): E11.9 - TYPE 2 DIABETES MELLITUS WITHOUT COMPLICATIONS (4) HTN (hypertension) Assessment/Plan: Well controlled cont home meds Code(s): I10 - ESSENTIAL (PRIMARY) HYPERTENSION (5) CAD (coronary artery disease) Assessment/Plan: S/P Stent cont home meds Code(s): I25.10 - ATHSCL HEART DISEASE OF [place] CORONARY ARTERY W/O ANG PCTRS
[2017-05-12] MEDS ORDERED: IMIPENEM/CILASTATIN SODIUM 500 MG in SODIUM CHLORIDE 100 ML IVPB SCH (18:00)
[2017-05-12] MEDS: RANITIDINE HCL 150 MG TABLET (FP) PO SCH (21:30)
[2017-05-12] MEDS: ATORVASTATIN CA 40 MG TABLET (FP) PO SCH (21:30)
[2017-05-12] MEDS: LOSARTAN POTASSIUM 50 MG TABLET (FP) PO SCH (21:31)
--- NOTE | 2017-05-12 21:34 | EKG ---
Test Reason : Blood Pressure : / mmHG Vent. Rate : 083 BPM Atrial Rate : 083 BPM P-R Int : 140 ms QRS Dur : 076 ms QT Int : 372 ms P-R-T Axes : 036 024 037 degrees QTc Int : 437 ms NORMAL SINUS RHYTHM NORMAL ECG WHEN COMPARED WITH ECG OF 11-MAY-2017 12:35, NO SIGNIFICANT CHANGE WAS FOUND Confirmed by CIARA JIANG MD ([id number]) on 05/12/2017 9:34:25 PM Referred By: Confirmed By:CIARA JIANG MD
[2017-05-12] MEDS: AZTREONAM 1 GRAM SYRINGE 1 GM/10 ML DISP.SYRIN IVPUSH SCH (22:17)
[2017-05-12 23:12] VITALS: BMI 28.0
[2017-05-13] MEDS: ONDANSETRON 4 MG/2 ML VIAL IVPUSH PRN ×3 (01:44→23:13)
[2017-05-13] MEDS: ACETAMINOPHEN 325 MG TABLET (FP) PO PRN ×4 (02:11→23:40)
[2017-05-13] MEDS: INSULIN (NOVOLOG) ASPART 100 UNITS/ML 10ML VIAL SQ SCH ×2 (06:16→18:01)
[2017-05-13] MEDS: INSULIN SLIDING SCALE (NOVOLOG) 1 VIAL SQ SCH ×3 (06:16→18:01)
[2017-05-13] MEDS: sitaGLIPtin PHOSPHATE 100 MG TABLET (FP) PO SCH (06:16)
[2017-05-13] MEDS: AZTREONAM 1 GRAM SYRINGE 1 GM/10 ML DISP.SYRIN IVPUSH SCH (06:18)
[2017-05-13] MEDS ORDERED: INSULIN DETEMIR 100 UNITS/ML MDV SQ SCH ×2 (07:00→09:41)
[2017-05-13 08:42] LABS: BASO % 0.3 % (0-2.0); EOS % 0.1 % (0-4.5); HEMATOCRIT 30.8 % (32.4-45.2); HEMOGLOBIN 10.2 GM/dL (10.7-15.3); LYMPH % 12.6 % (8-40); MCH 30.7 pg (25.7-33.7); MCHC 33.2 g/dl (32.0-36.0); MEAN CELL VOLUME 92.4 fl (80-96); MEAN PLT VOLUME 8.1 fl (7.5-11.1); MONO % 4.4 % (3.8-10.2); NEUT % 82.6 % (42.8-82.8); PLATELET COUNT 206 K/MM3 (134-434); RBC 3.33 M/mm3 (3.60-5.2); WHITE BLOOD COUNT 10.4 K/mm3 (4.0-10.0)
[2017-05-13] MEDS ORDERED: PT OWN MED DRAWER 7, Y5N ONE ×2 (09:29→11:33)
[2017-05-13 09:35] LABS: CHLORIDE 106 mmol/L (98-107); POTASSIUM 3.9 mmol/L (3.5-5.1); SODIUM 140 mmol/L (136-145)
[2017-05-13] MEDS: RANITIDINE HCL 150 MG TABLET (FP) PO SCH (09:44)
[2017-05-13] MEDS: ASPIRIN 81 MG CHEWABLE TABLETS PO SCH (09:44)
[2017-05-13] MEDS: GABAPENTIN 300 MG CAPSULE (FP) PO SCH (09:44)
[2017-05-13] MEDS: LOSARTAN POTASSIUM 50 MG TABLET (FP) PO SCH ×2 (09:44→22:19)
[2017-05-13] MEDS ORDERED: PATIENT'S OWN MEDICATION (NON-FORMULARY) (Linagliptin [Tradjenta] 5 MG) PO SCH (10:00)
[2017-05-13] MEDS ORDERED: AZTREONAM 1 GRAM SYRINGE 1 GM/10 ML DISP.SYRIN IVPUSH SCH (10:00)
[2017-05-13 10:03] LABS: ANION GAP 10 (8-16); BLOOD UREA NITROGEN 9 mg/dL (7-18); CALCIUM 8.2 mg/dL (8.5-10.1); CO2 24 mmol/L (21-32); CREATININE 0.9 mg/dL (0.55-1.02); GLUCOSE,RANDOM 57 mg/dL (74-106)
[2017-05-13] MEDS ORDERED: ERTAPENEM SODIUM 1 GM in SODIUM CHLORIDE 50 ML IVPB SCH (13:30)
--- NOTE | 2017-05-13 13:38 | CON.ID ---
Consult Consult Specialty:: infectious diseases Reason for Consultation:: bacteremia - History of Present Illness Chief Complaint: weakness,fever,uti History of Present Illness: patient 67 who has been sick for it seems last 2 weeks with uti. patient was treated as outpatient for uti by .the alst treatment was couple of days abck and on patient again had urine and blood done her blood shows esbl and also her urine shows gm negative infection patient also is c/o of headache which has been ongoing patient has got couple of doses of azactam also patient has been spiking fevers since admission - History Source History Provided By: Patient Limitations to Obtaining History: Language Barrier - Alcohol/Substance Use Hx Alcohol Use: No - Smoking History Smoking history: Never smoked Have you smoked in the past 12 months: No Home Medications - Allergies Allergies/Adverse Reactions: Allergies Allergy/AdvReac Type Severity Reaction Status Date / Time Penicillins Allergy Severe Swelling Verified 05/12/17 09:39 - Home Medications Home Medications: Ambulatory Orders Aspirin [ASA -] 81 mg PO DAILY 05/12/17 Atorvastatin Ca [Lipitor] 40 mg PO DAILY 05/12/17 Calcium Carbonate/Vitamin D3 [Calcium 600-Vit D3 400 Tablet] 1 each PO DAILY Famotidine [Pepcid] 20 mg PO BID 05/12/17 Gabapentin 300 mg PO DAILY 05/12/17 Glipizide 10 mg PO BID 05/12/17 Insulin Glargine,Hum.rec.anlog [Lantus] 60 unit SQ AM 05/12/17 Insulin Lispro [Humalog] 5 unit SQ BID 05/12/17 Linagliptin [Tradjenta] 5 mg PO DAILY 05/12/17 Losartan Potassium [Cozaar -] 50 mg PO BID 05/12/17 Nebivolol [Bystolic -] 5 mg PO DAILY 05/12/17 Review of Systems - Review of Systems Constitutional: reports: Fever Eyes: reports: No Symptoms HENT: reports: Other (headache) Neck: reports: No Symptoms Cardiovascular: reports: No Symptoms Respiratory: reports: No Symptoms Gastrointestinal: reports: No Symptoms Genitourinary: reports: Other Integumentary: reports: No Symptoms Neurological: reports: Other (headache) Endocrine: reports: No Symptoms Hematology/Lymphatic: reports: No Symptoms Psychiatric: reports: No Symptoms Physical Exam Vital Signs: Vital Signs Temperature 100.6 F H 05/13/17 09:00 Pulse Rate 95 H 05/13/17 09:00 Respiratory Rate 18 05/13/17 09:00 Blood Pressure 121/57 05/13/17 09:00 O2 Sat by Pulse Oximetry (%) 98 05/13/17 09:00 Constitutional: Yes: Calm, Mild Distress Eyes: Yes: Conjunctiva Clear Neck: Yes: Supple, Trachea Midline Cardiovascular: Yes: Regular Rate and Rhythm Respiratory: Yes: Regular, CTA Bilaterally Gastrointestinal: Yes: Normal Bowel Sounds, Soft Musculoskeletal: Yes: WNL Extremities: Yes: WNL Neurological: Yes: Alert, Oriented Labs: CBC, BMP 05/13/17 07:30 05/13/17 07:30 Imaging - Results Chest X-ray: Report Reviewed, Image Reviewed Assessment/Plan gm negative bacetermia uti' ESBL fever weakness htn patient is known to have amoxicillin allergy plan will start patient on ertapenam close watch for any allergy hydration rest as per primary team
--- NOTE | 2017-05-13 13:48 | PN ---
Progress Note, Physician Chief Complaint: C/O nause poor PO intake less fever Blood Culture Grew ESBL E Coli History of Present Illness: 67 yrs old F with H/O HTN, T2DM on Insulin, CAD s/p PCI , Dyslipedemia, has been having UTI for past few months completed multiple course of Abx recently completed Ciproflaxacin 1 wk ago on visited Ed with dysuria, Rt CVA pain, nausea, fever and chills,patient was Dc Home on Po Levofloxacin blood culture drawan in Ed grew GNB non fermenters called back for evaluation, - Current Medication List Current Medications: Active Medications Acetaminophen (Tylenol -) 650 mg PO Q6H PRN PRN Reason: FEVER Last Admin: 05/13/17 08:10 Dose: 650 mg Aspirin (Asa -) 81 mg PO DAILY [facility] Last Admin: 05/13/17 09:44 Dose: 81 mg Atorvastatin Calcium (Lipitor -) 40 mg PO HS [facility] Last Admin: 05/12/17 21:30 Dose: Not Given Gabapentin (Neurontin -) 300 mg PO DAILY [facility] Last Admin: 05/13/17 09:44 Dose: 300 mg Ertapenem 1 gm/ Sodium (Chloride) 100 mls @ 200 mls/hr IVPB DAILY [facility] Insulin Aspart (Novolog Vial) 5 units SQ BIDAC [facility] Last Admin: 05/13/17 06:16 Dose: Not Given Insulin Aspart (Novolog Vial Sliding Scale -) 1 vial SQ TIDAC [facility] PRN Reason: Protocol Last Admin: 05/13/17 11:27 Dose: Not Given Insulin Detemir (Levemir Vial) 40 units SQ AM [facility] Losartan Potassium (Cozaar -) 50 mg PO BID [facility] Last Admin: 05/13/17 09:44 Dose: 50 mg Nebivolol (Bystolic -) 5 mg PO DAILY [facility] Ondansetron HCl (Zofran Injection) 4 mg IVPUSH Q6H PRN PRN Reason: NAUSEA Last Admin: 05/13/17 08:10 Dose: 4 mg Ranitidine HCl (Zantac -) 150 mg PO BID [facility] Last Admin: 05/13/17 09:44 Dose: 150 mg Sitagliptin Phosphate (Januvia -) 100 mg PO DAILY@0700 [facility] Last Admin: 05/13/17 06:16 Dose: Not Given - Objective Vital Signs: Vital Signs Temperature 100.6 F H 05/13/17 09:00 Pulse Rate 95 H 05/13/17 09:00 Respiratory Rate 18 05/13/17 09:00 Blood Pressure 121/57 05/13/17 09:00 O2 Sat by Pulse Oximetry (%) 98 05/13/17 09:00 Elderly F looks improved c/.o Rt Flank pain HEENT: Mm dry, mold anemia, PERRLA EOMI NECK: No JVd No Bruit CHEST: CTA B/L CVS: S1S2 R no m/g/r ABDD: No distention, non tender Bs + EXT: Rt CVA Tenderness No edema feet, 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; 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 Labs: CBC, BMP 05/13/17 07:30 05/13/17 07:30 INR, PTT INR 1.27 (0.82-1.09) H 05/12/17 13:36 Problem List - Problems (1) UTI (urinary tract infection) Assessment/Plan: On Ertapenem fpr ESBL E Colli Bacteremia i Code(s): N39.0 - URINARY TRACT INFECTION, SITE NOT SPECIFIED (2) Sepsis Assessment/Plan: Due to UTI Grew ESBL E Colli on Ertapenem PCN allergy will observe closey Code(s): A41.9 - SEPSIS, UNSPECIFIED ORGANISM (3) T2DM (type 2 diabetes mellitus) Assessment/Plan: Hold PO meds decrease Lantus and correction dose insulin Code(s): E11.9 - TYPE 2 DIABETES MELLITUS WITHOUT COMPLICATIONS (4) HTN (hypertension) Assessment/Plan: Well controlled cont home meds Code(s): I10 - ESSENTIAL (PRIMARY) HYPERTENSION (5) CAD (coronary artery disease) Assessment/Plan: S/P Stent cont home meds Code(s): I25.10 - ATHSCL HEART DISEASE OF [place] CORONARY ARTERY W/O ANG PCTRS (6) Dyslipidemia Assessment/Plan: on Statin Code(s): E78.5 - HYPERLIPIDEMIA, UNSPECIFIED
[2017-05-13] MEDS: ERTAPENEM SODIUM 1 GM in SODIUM CHLORIDE 100 ML IVPB SCH (13:49)
[2017-05-13] MEDS: NEBIVOLOL 5 MG TABLET (FP) PO SCH (15:04)
[2017-05-13] MEDS: DEXTROSE 5%-0.45% SALINE 1,000 ML IV SCH (19:07)
[2017-05-13] MEDS: FAMOTIDINE 20 MG/50 ML IVPB 20 MG/50 ML MG IVPB SCH (22:20)
[2017-05-13] MEDS: ATORVASTATIN CA 40 MG TABLET (FP) PO SCH (22:21)
[2017-05-14] MEDS ORDERED: PT OWN MED DRAWER 7, Y5N ONE ×2 (05:46→09:08)
[2017-05-14] MEDS: INSULIN (NOVOLOG) ASPART 100 UNITS/ML 10ML VIAL SQ SCH ×2 (06:06→17:55)
[2017-05-14] MEDS: INSULIN SLIDING SCALE (NOVOLOG) 1 VIAL SQ SCH ×3 (06:07→17:55)
[2017-05-14] MEDS: INSULIN DETEMIR 100 UNITS/ML MDV SQ SCH (06:09)
[2017-05-14] MEDS: sitaGLIPtin PHOSPHATE 100 MG TABLET (FP) PO SCH (06:09)
[2017-05-14 08:20] LABS: BASO % 0.3 % (0-2.0); HEMATOCRIT 28.9 % (32.4-45.2); HEMOGLOBIN 9.6 GM/dL (10.7-15.3); LYMPH % 11.5 % (8-40); MCH 30.6 pg (25.7-33.7); MCHC 33.3 g/dl (32.0-36.0); MEAN CELL VOLUME 91.7 fl (80-96); MEAN PLT VOLUME 8.1 fl (7.5-11.1); MONO % 3.5 % (3.8-10.2); NEUT % 84.7 % (42.8-82.8); PLATELET COUNT 195 K/MM3 (134-434); RBC 3.15 M/mm3 (3.60-5.2); RDW 13.9 % (11.6-15.6); WHITE BLOOD COUNT 6.8 K/mm3 (4.0-10.0)
[2017-05-14 08:24] LABS: ANION GAP 6 (8-16); BLOOD UREA NITROGEN 8 mg/dL (7-18); CALCIUM 7.9 mg/dL (8.5-10.1); CHLORIDE 106 mmol/L (98-107); CO2 26 mmol/L (21-32); CREATININE 0.8 mg/dL (0.55-1.02); GLUCOSE,RANDOM 229 mg/dL (74-106); POTASSIUM 3.9 mmol/L (3.5-5.1); SODIUM 138 mmol/L (136-145)
[2017-05-14] MEDS: ASPIRIN 81 MG CHEWABLE TABLETS PO SCH (09:15)
[2017-05-14] MEDS: LOSARTAN POTASSIUM 50 MG TABLET (FP) PO SCH ×2 (09:15→22:47)
[2017-05-14] MEDS: NEBIVOLOL 5 MG TABLET (FP) PO SCH (09:15)
[2017-05-14] MEDS: GABAPENTIN 300 MG CAPSULE (FP) PO SCH (09:15)
[2017-05-14] MEDS: FAMOTIDINE 20 MG/50 ML IVPB 20 MG/50 ML MG IVPB SCH ×2 (09:16→22:46)
[2017-05-14] MEDS: ERTAPENEM SODIUM 1 GM in SODIUM CHLORIDE 100 ML IVPB SCH (10:33)
[2017-05-14] MEDS: ACETAMINOPHEN 325 MG TABLET (FP) PO PRN (12:25)
[2017-05-14] MEDS: guaiFENesin/D-METHORPHAN HB 10 ML UNIT-DOSE CUPS PO PRN ×2 (12:25→22:49)
--- NOTE | 2017-05-14 13:38 | PN ---
Progress Note, Physician Chief Complaint: C/O nause poor PO intake less fever Blood Culture Grew ESBL E Coli History of Present Illness: 67 yrs old F with H/O HTN, T2DM on Insulin, CAD s/p PCI , Dyslipedemia, has been having UTI for past few months completed multiple course of Abx recently completed Ciproflaxacin 1 wk ago on visited Ed with dysuria, Rt CVA pain, nausea, fever and chills,patient was Dc Home on Po Levofloxacin blood culture drawan in Ed grew GNB non fermenters called back for evaluation, - Current Medication List Current Medications: Active Medications Acetaminophen (Tylenol -) 650 mg PO Q6H PRN PRN Reason: PAIN LEVEL 1-6 Last Admin: 05/14/17 12:25 Dose: 650 mg Aspirin (Asa -) 81 mg PO DAILY [facility] Last Admin: 05/14/17 09:15 Dose: 81 mg Atorvastatin Calcium (Lipitor -) 40 mg PO HS [facility] Last Admin: 05/13/17 22:21 Dose: 40 mg Gabapentin (Neurontin -) 300 mg PO DAILY [facility] Last Admin: 05/14/17 09:15 Dose: 300 mg Guaifenesin (Robitussin Dm -) 10 ml PO Q8H PRN PRN Reason: COUGH Last Admin: 05/14/17 12:25 Dose: 10 ml Ertapenem 1 gm/ Sodium (Chloride) 100 mls @ 200 mls/hr IVPB DAILY [facility] Last Admin: 05/14/17 10:33 Dose: 200 mls/hr Famotidine/Sodium Chloride (Pepcid 20 Mg Premixed Ivpb -) 20 mg in 50 mls @ 100 mls/hr IVPB BID [facility] Last Admin: 05/14/17 09:16 Dose: 100 mls/hr Dextrose/Sodium Chloride (D5-1/2ns -) 1,000 mls @ 100 mls/hr IV ASDIR [facility] Last Admin: 05/13/17 19:07 Dose: 100 mls/hr Insulin Aspart (Novolog Vial) 5 units SQ BIDAC [facility] Last Admin: 05/14/17 06:06 Dose: 5 units Insulin Aspart (Novolog Vial Sliding Scale -) 1 vial SQ TIDAC [facility] PRN Reason: Protocol Last Admin: 05/14/17 11:21 Dose: Not Given Insulin Detemir (Levemir Vial) 20 units SQ AM [facility] Last Admin: 05/14/17 06:09 Dose: 20 unit Losartan Potassium (Cozaar -) 50 mg PO BID [facility] Last Admin: 05/14/17 09:15 Dose: 50 mg Nebivolol (Bystolic -) 5 mg PO DAILY [facility] Last Admin: 05/14/17 09:15 Dose: 5 mg Ondansetron HCl (Zofran Injection) 4 mg IVPUSH Q6H PRN PRN Reason: NAUSEA Last Admin: 05/13/17 23:13 Dose: 4 mg Sitagliptin Phosphate (Januvia -) 100 mg PO DAILY@0700 [facility] Last Admin: 05/14/17 06:09 Dose: Not Given - Objective Vital Signs: Vital Signs Temperature 98.3 F 05/14/17 08:20 Pulse Rate 71 05/14/17 08:20 Respiratory Rate 18 05/14/17 08:20 Blood Pressure 110/56 05/14/17 08:20 O2 Sat by Pulse Oximetry (%) 98 05/13/17 21:00 Elderly F feels improved HEENT: Mm dry, mold anemia, PERRLA EOMI NECK: No JVd No Bruit CHEST: CTAB/L CVS: S1S2 R no m/g/r ABDD: No distention, non tender Bs + EXT: No Tenderness No edema feet, 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 Code(s): N39.0 - URINARY TRACT INFECTION, SITE NOT SPECIFIED (2) Sepsis Assessment/Plan: Due to UTI Grew ESBL E Colli on InvasPCN allergy will observe closey Code(s): A41.9 - SEPSIS, UNSPECIFIED ORGANISM (3) T2DM (type 2 diabetes mellitus) Assessment/Plan: Hold PO meds decrease Lantus and correction dose insulin Code(s): E11.9 - TYPE 2 DIABETES MELLITUS WITHOUT COMPLICATIONS (4) HTN (hypertension) Assessment/Plan: Well controlled cont home meds Code(s): I10 - ESSENTIAL (PRIMARY) HYPERTENSION (5) CAD (coronary artery disease) Assessment/Plan: S/P Stent cont home meds Code(s): I25.10 - ATHSCL HEART DISEASE OF [place] CORONARY ARTERY W/O ANG PCTRS
--- NOTE | 2017-05-14 13:43 | PN ---
Progress Note, Physician History of Present Illness: patient feeling better this morning says she is improving no complaints - Current Medication List Current Medications: Active Medications Acetaminophen (Tylenol -) 650 mg PO Q6H PRN PRN Reason: PAIN LEVEL 1-6 Last Admin: 05/14/17 12:25 Dose: 650 mg Aspirin (Asa -) 81 mg PO DAILY [facility] Last Admin: 05/14/17 09:15 Dose: 81 mg Atorvastatin Calcium (Lipitor -) 40 mg PO HS [facility] Last Admin: 05/13/17 22:21 Dose: 40 mg Gabapentin (Neurontin -) 300 mg PO DAILY [facility] Last Admin: 05/14/17 09:15 Dose: 300 mg Guaifenesin (Robitussin Dm -) 10 ml PO Q8H PRN PRN Reason: COUGH Last Admin: 05/14/17 12:25 Dose: 10 ml Ertapenem 1 gm/ Sodium (Chloride) 100 mls @ 200 mls/hr IVPB DAILY [facility] Last Admin: 05/14/17 10:33 Dose: 200 mls/hr Famotidine/Sodium Chloride (Pepcid 20 Mg Premixed Ivpb -) 20 mg in 50 mls @ 100 mls/hr IVPB BID [facility] Last Admin: 05/14/17 09:16 Dose: 100 mls/hr Dextrose/Sodium Chloride (D5-1/2ns -) 1,000 mls @ 100 mls/hr IV ASDIR [facility] Last Admin: 05/13/17 19:07 Dose: 100 mls/hr Insulin Aspart (Novolog Vial) 5 units SQ BIDAC [facility] Last Admin: 05/14/17 06:06 Dose: 5 units Insulin Aspart (Novolog Vial Sliding Scale -) 1 vial SQ TIDAC [facility] PRN Reason: Protocol Last Admin: 05/14/17 11:21 Dose: Not Given Insulin Detemir (Levemir Vial) 20 units SQ AM [facility] Last Admin: 05/14/17 06:09 Dose: 20 unit Losartan Potassium (Cozaar -) 50 mg PO BID [facility] Last Admin: 05/14/17 09:15 Dose: 50 mg Nebivolol (Bystolic -) 5 mg PO DAILY [facility] Last Admin: 05/14/17 09:15 Dose: 5 mg Ondansetron HCl (Zofran Injection) 4 mg IVPUSH Q6H PRN PRN Reason: NAUSEA Last Admin: 05/13/17 23:13 Dose: 4 mg Sitagliptin Phosphate (Januvia -) 100 mg PO DAILY@0700 [facility] Last Admin: 05/14/17 06:09 Dose: Not Given - Objective Vital Signs: Vital Signs Temperature 98.3 F 05/14/17 08:20 Pulse Rate 71 05/14/17 08:20 Respiratory Rate 18 05/14/17 08:20 Blood Pressure 110/56 05/14/17 08:20 O2 Sat by Pulse Oximetry (%) 98 05/13/17 21:00 Constitutional: Yes: No Distress, Calm Cardiovascular: Yes: Regular Rate and Rhythm Respiratory: Yes: Regular, CTA Bilaterally Gastrointestinal: Yes: Normal Bowel Sounds, Soft Musculoskeletal: Yes: WNL Extremities: Yes: WNL Neurological: Yes: Alert, Oriented Psychiatric: Yes: Alert, Oriented Labs: CBC, BMP 05/14/17 06:30 05/14/17 06:30 INR, PTT INR 1.27 (0.82-1.09) H 05/12/17 13:36 Assessment/Plan gm negative bacetermia uti' ESBL fever weakness htn plan continue current abx will recheck blood cx on friday--ordered rest as per primary stable
[2017-05-14] MEDS: DEXTROSE 5%-0.45% SALINE 1,000 ML IV SCH ×2 (16:55→22:42)
[2017-05-14] MEDS: ATORVASTATIN CA 40 MG TABLET (FP) PO SCH (22:47)
[2017-05-15] MEDS: ACETAMINOPHEN 325 MG TABLET (FP) PO PRN (06:41)
[2017-05-15] MEDS: guaiFENesin/D-METHORPHAN HB 10 ML UNIT-DOSE CUPS PO PRN (06:41)
[2017-05-15] MEDS: sitaGLIPtin PHOSPHATE 100 MG TABLET (FP) PO SCH (06:42)
[2017-05-15] MEDS: INSULIN DETEMIR 100 UNITS/ML MDV SQ SCH (06:42)
[2017-05-15] MEDS: INSULIN (NOVOLOG) ASPART 100 UNITS/ML 10ML VIAL SQ SCH ×2 (06:42→16:41)
[2017-05-15] MEDS: INSULIN SLIDING SCALE (NOVOLOG) 1 VIAL SQ SCH ×3 (06:43→16:41)
[2017-05-15 07:58] LABS: CHLORIDE 104 mmol/L (98-107); POTASSIUM 4.1 mmol/L (3.5-5.1); SODIUM 138 mmol/L (136-145)
[2017-05-15 08:00] LABS: BASO % 0.4 % (0-2.0); EOS % 1.3 % (0-4.5); HEMATOCRIT 29.5 % (32.4-45.2); HEMOGLOBIN 9.8 GM/dL (10.7-15.3); LYMPH % 18.9 % (8-40); MCH 30.3 pg (25.7-33.7); MCHC 33.4 g/dl (32.0-36.0); MEAN CELL VOLUME 90.8 fl (80-96); MEAN PLT VOLUME 8.1 fl (7.5-11.1); MONO % 11.5 % (3.8-10.2); NEUT % 67.9 % (42.8-82.8); PLATELET COUNT 210 K/MM3 (134-434); RBC 3.25 M/mm3 (3.60-5.2); RDW 14.3 % (11.6-15.6); WHITE BLOOD COUNT 4.9 K/mm3 (4.0-10.0)
[2017-05-15 08:05] LABS: ANION GAP 9 (8-16); BLOOD UREA NITROGEN 8 mg/dL (7-18); CO2 25 mmol/L (21-32); CREATININE 0.8 mg/dL (0.55-1.02); GLUCOSE,RANDOM 196 mg/dL (74-106)
[2017-05-15] MEDS ORDERED: PT OWN MED DRAWER 7, Y5N ONE ×2 (09:10→09:17)
[2017-05-15] MEDS: GABAPENTIN 300 MG CAPSULE (FP) PO SCH (09:32)
[2017-05-15] MEDS: ASPIRIN 81 MG CHEWABLE TABLETS PO SCH (09:32)
[2017-05-15] MEDS: FAMOTIDINE 20 MG/50 ML IVPB 20 MG/50 ML MG IVPB SCH ×2 (09:32→21:22)
[2017-05-15] MEDS: ERTAPENEM SODIUM 1 GM in SODIUM CHLORIDE 100 ML IVPB SCH (09:33)
[2017-05-15] MEDS: LOSARTAN POTASSIUM 50 MG TABLET (FP) PO SCH ×2 (10:47→21:22)
[2017-05-15] MEDS: NEBIVOLOL 5 MG TABLET (FP) PO SCH (10:47)
--- NOTE | 2017-05-15 12:30 | PN ---
Progress Note, Physician Chief Complaint: SOB last night no fever or chills nausea, vomiting imposed able to tolerate PO History of Present Illness: 67 yrs old F with H/O HTN, T2DM on Insulin, CAD s/p PCI , Dyslipedemia, has been having UTI for past few months completed multiple course of Abx recently completed Ciproflaxacin 1 wk ago on visited Ed with dysuria, Rt CVA pain, nausea, fever and chills,patient was Dc Home on Po Levofloxacin blood culture drawn in Ed grew ESBL E colli - Current Medication List Current Medications: Active Medications Acetaminophen (Tylenol -) 650 mg PO Q6H PRN PRN Reason: PAIN LEVEL 1-6 Last Admin: 05/15/17 06:41 Dose: 650 mg Aspirin (Asa -) 81 mg PO DAILY [facility] Last Admin: 05/15/17 09:32 Dose: 81 mg Atorvastatin Calcium (Lipitor -) 40 mg PO HS [facility] Last Admin: 05/14/17 22:47 Dose: 40 mg Gabapentin (Neurontin -) 300 mg PO DAILY [facility] Last Admin: 05/15/17 09:32 Dose: 300 mg Guaifenesin (Robitussin Dm -) 10 ml PO Q8H PRN PRN Reason: COUGH Last Admin: 05/15/17 06:41 Dose: 10 ml Ertapenem 1 gm/ Sodium (Chloride) 100 mls @ 200 mls/hr IVPB DAILY [facility] Last Admin: 05/15/17 09:33 Dose: 200 mls/hr Famotidine/Sodium Chloride (Pepcid 20 Mg Premixed Ivpb -) 20 mg in 50 mls @ 100 mls/hr IVPB BID [facility] Last Admin: 05/15/17 09:32 Dose: 100 mls/hr Dextrose/Sodium Chloride (D5-1/2ns -) 1,000 mls @ 100 mls/hr IV ASDIR [facility] Last Admin: 05/14/17 22:42 Dose: Not Given Insulin Aspart (Novolog Vial) 5 units SQ BIDAC [facility] Last Admin: 05/15/17 06:42 Dose: 5 units Insulin Aspart (Novolog Vial Sliding Scale -) 1 vial SQ TIDAC [facility] PRN Reason: Protocol Last Admin: 05/15/17 11:52 Dose: Not Given Insulin Detemir (Levemir Vial) 20 units SQ AM [facility] Last Admin: 05/15/17 06:42 Dose: 20 unit Losartan Potassium (Cozaar -) 50 mg PO BID [facility] Last Admin: 05/15/17 10:47 Dose: Not Given Nebivolol (Bystolic -) 5 mg PO DAILY [facility] Last Admin: 05/15/17 10:47 Dose: Not Given Ondansetron HCl (Zofran Injection) 4 mg IVPUSH Q6H PRN PRN Reason: NAUSEA Last Admin: 05/13/17 23:13 Dose: 4 mg Sitagliptin Phosphate (Januvia -) 100 mg PO DAILY@0700 [facility] Last Admin: 05/15/17 06:42 Dose: 100 mg - Objective Vital Signs: Vital Signs Temperature 98.2 F 05/15/17 10:00 Pulse Rate 59 L 05/15/17 10:00 Respiratory Rate 18 05/15/17 10:00 Blood Pressure 98/49 05/15/17 10:00 O2 Sat by Pulse Oximetry (%) 97 05/14/17 22:00 Elderly F feels improved feels weak HEENT: Mm dry, mold anemia, PERRLA EOMI NECK: No JVd No Bruit CHEST: CTAB/L CVS: S1S2 R no m/g/r ABD: No distention, non tender Bs + EXT: No Tenderness No edema feet, no 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; 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 Labs: CBC, BMP 05/15/17 05:25 05/15/17 06:00 INR, PTT INR 1.27 (0.82-1.09) H 05/12/17 13:36 - ....Imaging X-ray: Report Reviewed (No infiltrates) EKG: Report Reviewed (Normal on admission) Problem List - Problems (1) UTI (urinary tract infection) Assessment/Plan: U Culture negative on Entrapenem say 3rd Code(s): N39.0 - URINARY TRACT INFECTION, SITE NOT SPECIFIED (2) Sepsis Assessment/Plan: Due to UTI Grew ESBL E Colli on Entrapenem day 3rd, PCN allergy will observe closey Code(s): A41.9 - SEPSIS, UNSPECIFIED ORGANISM (3) T2DM (type 2 diabetes mellitus) Assessment/Plan: PO Meds on Hold on reduced dose Lantus and correction dose insulin , optimzea s per FS Code(s): E11.9 - TYPE 2 DIABETES MELLITUS WITHOUT COMPLICATIONS (4) HTN (hypertension) Code(s): I10 - ESSENTIAL (PRIMARY) HYPERTENSION (5) CAD (coronary artery disease) Assessment/Plan: S/P Stent cont home meds Code(s): I25.10 - ATHSCL HEART DISEASE OF [place] CORONARY ARTERY W/O ANG PCTRS (6) Hypotension Assessment/Plan: No clical sign of decompensation, probably due to Poor PO Intake will consider IV Hydration Hold BP meds Rpt EKG F/U Clinically Code(s): I95.9 - HYPOTENSION, UNSPECIFIED (7) Nausea & vomiting Assessment/Plan: Improving Code(s): R11.2 - NAUSEA WITH VOMITING, UNSPECIFIED (8) Anemia Code(s): D64.9 - ANEMIA, UNSPECIFIED (9) Anemia Assessment/Plan: F/U anemia w/u Code(s): D64.9 - ANEMIA, UNSPECIFIED
[2017-05-15] MEDS ORDERED: ALBUTEROL SO4 2.5/IPRATROPIUM 0.5 INH SOL 3 ML VIAL.NEB. NEB PRN (12:36)
--- NOTE | 2017-05-15 12:59 | EKG ---
Test Reason : Blood Pressure : / mmHG Vent. Rate : 052 BPM Atrial Rate : 052 BPM P-R Int : 142 ms QRS Dur : 072 ms QT Int : 452 ms P-R-T Axes : 033 025 008 degrees QTc Int : 420 ms SINUS BRADYCARDIA OTHERWISE NORMAL ECG WHEN COMPARED WITH ECG OF 12-MAY-2017 16:34, VENT. RATE HAS DECREASED BY 29 BPM Confirmed by LESVIA VERDIN MD ([id number]) on 05/15/2017 12:58:49 PM Referred By: Confirmed By:LESVIA VERDIN MD
--- NOTE | 2017-05-15 14:43 | PN ---
Progress Note, Physician History of Present Illness: c/o indigestion sob last night no fever no dirrhoea - Current Medication List Current Medications: Active Medications Acetaminophen (Tylenol -) 650 mg PO Q6H PRN PRN Reason: PAIN LEVEL 1-6 Last Admin: 05/15/17 06:41 Dose: 650 mg Albuterol/Ipratropium (Duoneb -) 1 amp NEB Q6H PRN PRN Reason: SHORTNESS OF BREATH Aspirin (Asa -) 81 mg PO DAILY [facility] Last Admin: 05/15/17 09:32 Dose: 81 mg Atorvastatin Calcium (Lipitor -) 40 mg PO HS [facility] Last Admin: 05/14/17 22:47 Dose: 40 mg Gabapentin (Neurontin -) 300 mg PO DAILY [facility] Last Admin: 05/15/17 09:32 Dose: 300 mg Guaifenesin (Robitussin Dm -) 10 ml PO Q8H PRN PRN Reason: COUGH Last Admin: 05/15/17 06:41 Dose: 10 ml Ertapenem 1 gm/ Sodium (Chloride) 100 mls @ 200 mls/hr IVPB DAILY [facility] Last Admin: 05/15/17 09:33 Dose: 200 mls/hr Famotidine/Sodium Chloride (Pepcid 20 Mg Premixed Ivpb -) 20 mg in 50 mls @ 100 mls/hr IVPB BID [facility] Last Admin: 05/15/17 09:32 Dose: 100 mls/hr Sodium Chloride (Normal Saline -) 1,000 mls @ 75 mls/hr IV ASDIR [facility] Insulin Aspart (Novolog Vial) 5 units SQ BIDAC [facility] Last Admin: 05/15/17 06:42 Dose: 5 units Insulin Aspart (Novolog Vial Sliding Scale -) 1 vial SQ TIDAC [facility] PRN Reason: Protocol Last Admin: 05/15/17 11:52 Dose: Not Given Insulin Detemir (Levemir Vial) 20 units SQ AM [facility] Last Admin: 05/15/17 06:42 Dose: 20 unit Losartan Potassium (Cozaar -) 50 mg PO BID [facility] Last Admin: 05/15/17 10:47 Dose: Not Given Nebivolol (Bystolic -) 5 mg PO DAILY [facility] Last Admin: 05/15/17 10:47 Dose: Not Given Ondansetron HCl (Zofran Injection) 4 mg IVPUSH Q6H PRN PRN Reason: NAUSEA Last Admin: 05/13/17 23:13 Dose: 4 mg Sitagliptin Phosphate (Januvia -) 100 mg PO DAILY@0700 [facility] Last Admin: 05/15/17 06:42 Dose: 100 mg - Objective Vital Signs: Vital Signs Temperature 98.2 F 05/15/17 10:00 Pulse Rate 59 L 05/15/17 10:00 Respiratory Rate 18 05/15/17 10:00 Blood Pressure 98/49 05/15/17 10:00 O2 Sat by Pulse Oximetry (%) 97 05/14/17 22:00 Constitutional: Yes: No Distress, Calm Cardiovascular: Yes: Regular Rate and Rhythm Respiratory: Yes: Regular, CTA Bilaterally Gastrointestinal: Yes: Normal Bowel Sounds, Soft Musculoskeletal: Yes: WNL Extremities: Yes: WNL Neurological: Yes: Alert, Oriented Psychiatric: Yes: Alert, Oriented Labs: CBC, BMP 05/15/17 05:25 05/15/17 06:00 INR, PTT INR 1.27 (0.82-1.09) H 05/12/17 13:36 Assessment/Plan Problem List - Problems (1) UTI (urinary tract infection) Code(s): N39.0 - URINARY TRACT INFECTION, SITE NOT SPECIFIED (2) Sepsis Code(s): A41.9 - SEPSIS, UNSPECIFIED ORGANISM (3) T2DM (type 2 diabetes mellitus) Code(s): E11.9 - TYPE 2 DIABETES MELLITUS WITHOUT COMPLICATIONS (4) HTN (hypertension) Code(s): I10 - ESSENTIAL (PRIMARY) HYPERTENSION (5) CAD (coronary artery disease) Code(s): I25.10 - ATHSCL HEART DISEASE OF [place] CORONARY ARTERY W/O ANG PCTRS (6) Hypotension Code(s): I95.9 - HYPOTENSION, UNSPECIFIED (7) Nausea & vomiting Code(s): R11.2 - NAUSEA WITH VOMITING, UNSPECIFIED (8) Anemia Code(s): D64.9 - ANEMIA, UNSPECIFIED (9) Anemia Code(s): D64.9 - ANEMIA, UNSPECIFIED 10 gm negative bacteremia plan continue current abx blood cx tomorrow rest supportive mgmt and as per primary
[2017-05-15] MEDS: SODIUM CHLORIDE 1,000 ML IV SCH (14:55)
[2017-05-15] MEDS: ATORVASTATIN CA 40 MG TABLET (FP) PO SCH (21:22)
[2017-05-16] MEDS ORDERED: PT OWN MED DRAWER 7, Y5N ONE ×2 (06:20→09:05)
[2017-05-16 06:30] LABS: SERUM IRON SATURATION 13 % (15-55); TOTAL IRON BINDING CAPACITY 213 ug/dL (250-450); UIBC 186 ug/dL (118-369)
[2017-05-16] MEDS: sitaGLIPtin PHOSPHATE 100 MG TABLET (FP) PO SCH (06:32)
[2017-05-16] MEDS: INSULIN DETEMIR 100 UNITS/ML MDV SQ SCH (06:33)
[2017-05-16] MEDS: INSULIN (NOVOLOG) ASPART 100 UNITS/ML 10ML VIAL SQ SCH ×2 (06:34→17:10)
[2017-05-16] MEDS: INSULIN SLIDING SCALE (NOVOLOG) 1 VIAL SQ SCH ×3 (06:37→17:10)
[2017-05-16 08:31] LABS: BASO % 0.6 % (0-2.0); EOS % 2.1 % (0-4.5); HEMATOCRIT 29.9 % (32.4-45.2); HEMOGLOBIN 9.9 GM/dL (10.7-15.3); LYMPH % 26.6 % (8-40); MCH 30.2 pg (25.7-33.7); MEAN CELL VOLUME 91.3 fl (80-96); MEAN PLT VOLUME 8.1 fl (7.5-11.1); MONO % 12.2 % (3.8-10.2); NEUT % 58.5 % (42.8-82.8); PLATELET COUNT 240 K/MM3 (134-434); RBC 3.27 M/mm3 (3.60-5.2); RDW 14.5 % (11.6-15.6); WHITE BLOOD COUNT 5.5 K/mm3 (4.0-10.0)
[2017-05-16 09:01] LABS: ANION GAP 8 (8-16); BLOOD UREA NITROGEN 6 mg/dL (7-18); CALCIUM 7.7 mg/dL (8.5-10.1); CHLORIDE 107 mmol/L (98-107); CO2 26 mmol/L (21-32); CREATININE 0.8 mg/dL (0.55-1.02); GLUCOSE,RANDOM 145 mg/dL (74-106); SODIUM 141 mmol/L (136-145)
[2017-05-16] MEDS: NEBIVOLOL 5 MG TABLET (FP) PO SCH (09:22)
[2017-05-16] MEDS: FAMOTIDINE 20 MG/50 ML IVPB 20 MG/50 ML MG IVPB SCH ×2 (09:22→21:27)
[2017-05-16] MEDS: LOSARTAN POTASSIUM 50 MG TABLET (FP) PO SCH ×2 (09:22→21:27)
[2017-05-16] MEDS: ASPIRIN 81 MG CHEWABLE TABLETS PO SCH (09:22)
[2017-05-16] MEDS: GABAPENTIN 300 MG CAPSULE (FP) PO SCH (09:22)
[2017-05-16] MEDS: ERTAPENEM SODIUM 1 GM in SODIUM CHLORIDE 100 ML IVPB SCH (09:58)
[2017-05-16] MEDS ORDERED: INSULIN (NOVOLOG) ASPART 100 UNITS/ML 10ML VIAL ONE (12:27)
[2017-05-16] MEDS: SODIUM CHLORIDE 1,000 ML IV SCH (12:34)
--- NOTE | 2017-05-16 14:45 | PN ---
Progress Note, Physician History of Present Illness: patient doing well no complaints c/o of headache - Current Medication List Current Medications: Active Medications Acetaminophen (Tylenol -) 650 mg PO Q6H PRN PRN Reason: PAIN LEVEL 1-6 Last Admin: 05/15/17 06:41 Dose: 650 mg Albuterol/Ipratropium (Duoneb -) 1 amp NEB Q6H PRN PRN Reason: SHORTNESS OF BREATH Aspirin (Asa -) 81 mg PO DAILY [facility] Last Admin: 05/16/17 09:22 Dose: 81 mg Atorvastatin Calcium (Lipitor -) 40 mg PO HS [facility] Last Admin: 05/15/17 21:22 Dose: 40 mg Gabapentin (Neurontin -) 300 mg PO DAILY [facility] Last Admin: 05/16/17 09:22 Dose: 300 mg Guaifenesin (Robitussin Dm -) 10 ml PO Q8H PRN PRN Reason: COUGH Last Admin: 05/15/17 06:41 Dose: 10 ml Ertapenem 1 gm/ Sodium (Chloride) 100 mls @ 200 mls/hr IVPB DAILY [facility] Last Admin: 05/16/17 09:58 Dose: 200 mls/hr Famotidine/Sodium Chloride (Pepcid 20 Mg Premixed Ivpb -) 20 mg in 50 mls @ 100 mls/hr IVPB BID [facility] Last Admin: 05/16/17 09:22 Dose: 100 mls/hr Sodium Chloride (Normal Saline -) 1,000 mls @ 75 mls/hr IV ASDIR [facility] Last Admin: 05/16/17 12:34 Dose: Not Given Insulin Aspart (Novolog Vial) 5 units SQ BIDAC [facility] Last Admin: 05/16/17 06:34 Dose: 5 units Insulin Aspart (Novolog Vial Sliding Scale -) 1 vial SQ TIDAC [facility] PRN Reason: Protocol Last Admin: 05/16/17 12:33 Dose: Not Given Insulin Detemir (Levemir Vial) 20 units SQ AM [facility] Last Admin: 05/16/17 06:33 Dose: 20 unit Losartan Potassium (Cozaar -) 50 mg PO BID [facility] Last Admin: 05/16/17 09:22 Dose: 50 mg Nebivolol (Bystolic -) 5 mg PO DAILY [facility] Last Admin: 05/16/17 09:22 Dose: 5 mg Ondansetron HCl (Zofran Injection) 4 mg IVPUSH Q6H PRN PRN Reason: NAUSEA Last Admin: 05/13/17 23:13 Dose: 4 mg Sitagliptin Phosphate (Januvia -) 100 mg PO DAILY@0700 [facility] Last Admin: 05/16/17 06:32 Dose: 100 mg - Objective Vital Signs: Vital Signs Temperature 98.1 F 05/16/17 06:00 Pulse Rate 88 05/16/17 09:30 Respiratory Rate 20 05/16/17 09:30 Blood Pressure 116/58 05/16/17 09:30 O2 Sat by Pulse Oximetry (%) 98 05/16/17 09:00 Constitutional: Yes: No Distress, Calm Cardiovascular: Yes: Regular Rate and Rhythm Respiratory: Yes: Regular, CTA Bilaterally Gastrointestinal: Yes: Normal Bowel Sounds, Soft Musculoskeletal: Yes: WNL Extremities: Yes: WNL Neurological: Yes: Alert, Oriented Psychiatric: Yes: Alert, Oriented Labs: CBC, BMP 05/16/17 06:30 05/16/17 06:30 INR, PTT INR 1.27 (0.82-1.09) H 05/12/17 13:36 Assessment/Plan Problem List - Problems (1) UTI (urinary tract infection) Code(s): N39.0 - URINARY TRACT INFECTION, SITE NOT SPECIFIED (2) Sepsis Code(s): A41.9 - SEPSIS, UNSPECIFIED ORGANISM (3) T2DM (type 2 diabetes mellitus) Code(s): E11.9 - TYPE 2 DIABETES MELLITUS WITHOUT COMPLICATIONS (4) HTN (hypertension) Code(s): I10 - ESSENTIAL (PRIMARY) HYPERTENSION (5) CAD (coronary artery disease) Code(s): I25.10 - ATHSCL HEART DISEASE OF [place] CORONARY ARTERY W/O ANG PCTRS (6) Hypotension Code(s): I95.9 - HYPOTENSION, UNSPECIFIED (7) Nausea & vomiting Code(s): R11.2 - NAUSEA WITH VOMITING, UNSPECIFIED (8) Anemia Code(s): D64.9 - ANEMIA, UNSPECIFIED (9) Anemia Code(s): D64.9 - ANEMIA, UNSPECIFIED 10 gm negative bacteremia plan continue current abx await for blood cx report if blood cx are negative patient will need a total of 14 days of abx
--- NOTE | 2017-05-16 14:53 | PN ---
Progress Note, Physician Chief Complaint: SOB last night no fever or chills nausea, vomiting imposed able to tolerate PO History of Present Illness: 67 yrs old F with H/O HTN, T2DM on Insulin, CAD s/p PCI , Dyslipedemia, has been having UTI for past few months completed multiple course of Abx recently completed Ciproflaxacin 1 wk ago on visited Ed with dysuria, Rt CVA pain, nausea, fever and chills,patient was Dc Home on Po Levofloxacin blood culture drawn in Ed grew ESBL E colli Ertapenem day 4th - Current Medication List Current Medications: Active Medications Acetaminophen (Tylenol -) 650 mg PO Q6H PRN PRN Reason: PAIN LEVEL 1-6 Last Admin: 05/15/17 06:41 Dose: 650 mg Albuterol/Ipratropium (Duoneb -) 1 amp NEB Q6H PRN PRN Reason: SHORTNESS OF BREATH Aspirin (Asa -) 81 mg PO DAILY [facility] Last Admin: 05/16/17 09:22 Dose: 81 mg Atorvastatin Calcium (Lipitor -) 40 mg PO HS [facility] Last Admin: 05/15/17 21:22 Dose: 40 mg Gabapentin (Neurontin -) 300 mg PO DAILY [facility] Last Admin: 05/16/17 09:22 Dose: 300 mg Guaifenesin (Robitussin Dm -) 10 ml PO Q8H PRN PRN Reason: COUGH Last Admin: 05/15/17 06:41 Dose: 10 ml Ertapenem 1 gm/ Sodium (Chloride) 100 mls @ 200 mls/hr IVPB DAILY [facility] Last Admin: 05/16/17 09:58 Dose: 200 mls/hr Famotidine/Sodium Chloride (Pepcid 20 Mg Premixed Ivpb -) 20 mg in 50 mls @ 100 mls/hr IVPB BID [facility] Last Admin: 05/16/17 09:22 Dose: 100 mls/hr Sodium Chloride (Normal Saline -) 1,000 mls @ 75 mls/hr IV ASDIR [facility] Last Admin: 05/16/17 12:34 Dose: Not Given Insulin Aspart (Novolog Vial) 5 units SQ BIDAC [facility] Last Admin: 05/16/17 06:34 Dose: 5 units Insulin Aspart (Novolog Vial Sliding Scale -) 1 vial SQ TIDAC [facility] PRN Reason: Protocol Last Admin: 05/16/17 12:33 Dose: Not Given Insulin Detemir (Levemir Vial) 20 units SQ AM [facility] Last Admin: 05/16/17 06:33 Dose: 20 unit Losartan Potassium (Cozaar -) 50 mg PO BID [facility] Last Admin: 05/16/17 09:22 Dose: 50 mg Nebivolol (Bystolic -) 5 mg PO DAILY [facility] Last Admin: 05/16/17 09:22 Dose: 5 mg Ondansetron HCl (Zofran Injection) 4 mg IVPUSH Q6H PRN PRN Reason: NAUSEA Last Admin: 05/13/17 23:13 Dose: 4 mg Sitagliptin Phosphate (Januvia -) 100 mg PO DAILY@0700 [facility] Last Admin: 05/16/17 06:32 Dose: 100 mg - Objective Vital Signs: Vital Signs Temperature 98.1 F 05/16/17 06:00 Pulse Rate 88 05/16/17 09:30 Respiratory Rate 20 05/16/17 09:30 Blood Pressure 116/58 05/16/17 09:30 O2 Sat by Pulse Oximetry (%) 98 05/16/17 09:00 Elderly F feels improved feels HEENT: Mm dry, mold anemia, PERRLA EOMI NECK: No JVd No Bruit CHEST: CTAB/L CVS: S1S2 R no m/g/r ABD: No distention, non tender Bs + EXT: No Tenderness No edema feet, no 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; 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 Labs: CBC, BMP 05/16/17 06:30 05/16/17 06:30 INR, PTT INR 1.27 (0.82-1.09) H 05/12/17 13:36 Problem List - Problems (1) UTI (urinary tract infection) Assessment/Plan: U Culture negative on Entrapenem say 3rd Code(s): N39.0 - URINARY TRACT INFECTION, SITE NOT SPECIFIED (2) Sepsis Assessment/Plan: Due to UTI Grew ESBL E Colli on Entrapenem day 4th, PCN allergy will observe closely Rpt Blood culture today Code(s): A41.9 - SEPSIS, UNSPECIFIED ORGANISM (3) T2DM (type 2 diabetes mellitus) Assessment/Plan: PO Meds on Hold on reduced dose Lantus and correction dose insulin , optimzea s per FS Code(s): E11.9 - TYPE 2 DIABETES MELLITUS WITHOUT COMPLICATIONS (4) HTN (hypertension) Assessment/Plan: Well controlled cont home meds Code(s): I10 - ESSENTIAL (PRIMARY) HYPERTENSION (5) CAD (coronary artery disease) Assessment/Plan: S/P Stent cont home meds Code(s): I25.10 - ATHSCL HEART DISEASE OF [place] CORONARY ARTERY W/O ANG PCTRS (6) Hypotension Assessment/Plan: No clical sign of decompensation, probably due to Poor PO Intake will consider IV Hydration Hold BP meds Rpt EKG F/U Clinically Code(s): I95.9 - HYPOTENSION, UNSPECIFIED (7) Nausea & vomiting Assessment/Plan: Improving Code(s): R11.2 - NAUSEA WITH VOMITING, UNSPECIFIED (8) Anemia Code(s): D64.9 - ANEMIA, UNSPECIFIED (9) Anemia Assessment/Plan: F/U anemia w/u Code(s): D64.9 - ANEMIA, UNSPECIFIED
[2017-05-16] MEDS: ATORVASTATIN CA 40 MG TABLET (FP) PO SCH (21:27)
[2017-05-17] MEDS: SODIUM CHLORIDE 1,000 ML IV SCH (02:14)
[2017-05-17] MEDS: sitaGLIPtin PHOSPHATE 100 MG TABLET (FP) PO SCH (06:33)
[2017-05-17] MEDS: INSULIN SLIDING SCALE (NOVOLOG) 1 VIAL SQ SCH ×3 (06:34→17:37)
[2017-05-17] MEDS: INSULIN DETEMIR 100 UNITS/ML MDV SQ SCH (06:34)
[2017-05-17] MEDS: INSULIN (NOVOLOG) ASPART 100 UNITS/ML 10ML VIAL SQ SCH ×2 (06:34→17:57)
[2017-05-17] MEDS ORDERED: INSULIN (NOVOLOG) ASPART 100 UNITS/ML 10ML VIAL ONE (07:05)
[2017-05-17 07:33] LABS: BASO % 0.5 % (0-2.0); EOS % 2.3 % (0-4.5); HEMATOCRIT 29.4 % (32.4-45.2); HEMOGLOBIN 9.7 GM/dL (10.7-15.3); LYMPH % 28.7 % (8-40); MCH 29.9 pg (25.7-33.7); MCHC 32.8 g/dl (32.0-36.0); MEAN CELL VOLUME 91.1 fl (80-96); MEAN PLT VOLUME 7.7 fl (7.5-11.1); MONO % 10.9 % (3.8-10.2); NEUT % 57.6 % (42.8-82.8); PLATELET COUNT 254 K/MM3 (134-434); RBC 3.23 M/mm3 (3.60-5.2); RDW 14.4 % (11.6-15.6); WHITE BLOOD COUNT 5.6 K/mm3 (4.0-10.0)
[2017-05-17 07:49] LABS: ANION GAP 6 (8-16); BLOOD UREA NITROGEN 11 mg/dL (7-18); CALCIUM 7.8 mg/dL (8.5-10.1); CHLORIDE 110 mmol/L (98-107); CO2 26 mmol/L (21-32); CREATININE 0.8 mg/dL (0.55-1.02); GLUCOSE,RANDOM 157 mg/dL (74-106); SODIUM 142 mmol/L (136-145)
[2017-05-17] MEDS ORDERED: PT OWN MED DRAWER 7, Y5N ONE (10:02)
[2017-05-17] MEDS: NEBIVOLOL 5 MG TABLET (FP) PO SCH (10:05)
[2017-05-17] MEDS: GABAPENTIN 300 MG CAPSULE (FP) PO SCH (10:05)
[2017-05-17] MEDS: ASPIRIN 81 MG CHEWABLE TABLETS PO SCH (10:05)
[2017-05-17] MEDS: LOSARTAN POTASSIUM 50 MG TABLET (FP) PO SCH ×2 (10:05→21:54)
[2017-05-17] MEDS: ERTAPENEM SODIUM 1 GM in SODIUM CHLORIDE 100 ML IVPB SCH (10:06)
[2017-05-17] MEDS: guaiFENesin/D-METHORPHAN HB 10 ML UNIT-DOSE CUPS PO PRN (10:33)
--- NOTE | 2017-05-17 11:23 | PN ---
Progress Note, Physician History of Present Illness: patient doing well no complaints - Current Medication List Current Medications: Active Medications Acetaminophen (Tylenol -) 650 mg PO Q6H PRN PRN Reason: PAIN LEVEL 1-6 Last Admin: 05/15/17 06:41 Dose: 650 mg Albuterol/Ipratropium (Duoneb -) 1 amp NEB Q6H PRN PRN Reason: SHORTNESS OF BREATH Aspirin (Asa -) 81 mg PO DAILY [facility] Last Admin: 05/17/17 10:05 Dose: 81 mg Atorvastatin Calcium (Lipitor -) 40 mg PO HS [facility] Last Admin: 05/16/17 21:27 Dose: 40 mg Gabapentin (Neurontin -) 300 mg PO DAILY [facility] Last Admin: 05/17/17 10:05 Dose: 300 mg Guaifenesin (Robitussin Dm -) 10 ml PO Q8H PRN PRN Reason: COUGH Last Admin: 05/17/17 10:33 Dose: 10 ml Ertapenem 1 gm/ Sodium (Chloride) 100 mls @ 200 mls/hr IVPB DAILY [facility] Last Admin: 05/17/17 10:06 Dose: 200 mls/hr Famotidine/Sodium Chloride (Pepcid 20 Mg Premixed Ivpb -) 20 mg in 50 mls @ 100 mls/hr IVPB BID [facility] Last Admin: 05/16/17 21:27 Dose: 100 mls/hr Sodium Chloride (Normal Saline -) 1,000 mls @ 75 mls/hr IV ASDIR [facility] Last Admin: 05/17/17 02:14 Dose: 75 mls/hr Insulin Aspart (Novolog Vial) 5 units SQ BIDAC [facility] Last Admin: 05/17/17 06:34 Dose: 5 units Insulin Aspart (Novolog Vial Sliding Scale -) 1 vial SQ TIDAC [facility] PRN Reason: Protocol Last Admin: 05/17/17 06:34 Dose: 2 unit Insulin Detemir (Levemir Vial) 20 units SQ AM [facility] Last Admin: 05/17/17 06:34 Dose: 20 unit Losartan Potassium (Cozaar -) 50 mg PO BID [facility] Last Admin: 05/17/17 10:05 Dose: 50 mg Nebivolol (Bystolic -) 5 mg PO DAILY [facility] Last Admin: 05/17/17 10:05 Dose: 5 mg Ondansetron HCl (Zofran Injection) 4 mg IVPUSH Q6H PRN PRN Reason: NAUSEA Last Admin: 05/13/17 23:13 Dose: 4 mg Sitagliptin Phosphate (Januvia -) 100 mg PO DAILY@0700 [facility] Last Admin: 05/17/17 06:33 Dose: 100 mg - Objective Vital Signs: Vital Signs Temperature 98.6 F 05/17/17 06:00 Pulse Rate 65 05/17/17 06:00 Respiratory Rate 20 05/17/17 06:00 Blood Pressure 115/68 05/17/17 06:00 O2 Sat by Pulse Oximetry (%) 98 05/16/17 09:00 Constitutional: Yes: No Distress, Calm HENT: Yes: Atraumatic Neck: Yes: Supple, Trachea Midline Cardiovascular: Yes: Regular Rate and Rhythm Respiratory: Yes: Regular, CTA Bilaterally Gastrointestinal: Yes: Normal Bowel Sounds, Soft Musculoskeletal: Yes: WNL Extremities: Yes: WNL Neurological: Yes: Alert, Oriented Psychiatric: Yes: Alert, Oriented Labs: CBC, BMP 05/17/17 07:15 05/17/17 07:15 INR, PTT INR 1.27 (0.82-1.09) H 05/12/17 13:36 Assessment/Plan Problem List - Problems (1) UTI (urinary tract infection) Code(s): N39.0 - URINARY TRACT INFECTION, SITE NOT SPECIFIED (2) Sepsis Code(s): A41.9 - SEPSIS, UNSPECIFIED ORGANISM (3) T2DM (type 2 diabetes mellitus) Code(s): E11.9 - TYPE 2 DIABETES MELLITUS WITHOUT COMPLICATIONS (4) HTN (hypertension) Code(s): I10 - ESSENTIAL (PRIMARY) HYPERTENSION (5) CAD (coronary artery disease) Code(s): I25.10 - ATHSCL HEART DISEASE OF [place] CORONARY ARTERY W/O ANG PCTRS (6) Hypotension Code(s): I95.9 - HYPOTENSION, UNSPECIFIED (7) Nausea & vomiting Code(s): R11.2 - NAUSEA WITH VOMITING, UNSPECIFIED (8) Anemia Code(s): D64.9 - ANEMIA, UNSPECIFIED (9) Anemia Code(s): D64.9 - ANEMIA, UNSPECIFIED 10 gm negative bacteremia plan continue current abx patient to continue abx for 14 days
[2017-05-17] MEDS: FAMOTIDINE 20 MG/50 ML IVPB 20 MG/50 ML MG IVPB SCH ×2 (12:12→21:54)
--- NOTE | 2017-05-17 12:38 | PN ---
Progress Note, Physician Chief Complaint: Comfortable afebrile History of Present Illness: 67 yrs old F with H/O HTN, T2DM on Insulin, CAD s/p PCI , Dyslipedemia, has been having UTI for past few months completed multiple course of Abx recently completed Ciproflaxacin 1 wk ago on visited Ed with dysuria, Rt CVA pain, nausea, fever and chills,patient was Dc Home on Po Levofloxacin blood culture drawn in Ed grew ESBL E colli Ertapenem day 5th - Current Medication List Current Medications: Active Medications Acetaminophen (Tylenol -) 650 mg PO Q6H PRN PRN Reason: PAIN LEVEL 1-6 Last Admin: 05/15/17 06:41 Dose: 650 mg Albuterol/Ipratropium (Duoneb -) 1 amp NEB Q6H PRN PRN Reason: SHORTNESS OF BREATH Aspirin (Asa -) 81 mg PO DAILY [facility] Last Admin: 05/17/17 10:05 Dose: 81 mg Atorvastatin Calcium (Lipitor -) 40 mg PO HS [facility] Last Admin: 05/16/17 21:27 Dose: 40 mg Gabapentin (Neurontin -) 300 mg PO DAILY [facility] Last Admin: 05/17/17 10:05 Dose: 300 mg Guaifenesin (Robitussin Dm -) 10 ml PO Q8H PRN PRN Reason: COUGH Last Admin: 05/17/17 10:33 Dose: 10 ml Ertapenem 1 gm/ Sodium (Chloride) 100 mls @ 200 mls/hr IVPB DAILY [facility] Last Admin: 05/17/17 10:06 Dose: 200 mls/hr Famotidine/Sodium Chloride (Pepcid 20 Mg Premixed Ivpb -) 20 mg in 50 mls @ 100 mls/hr IVPB BID [facility] Last Admin: 05/17/17 12:12 Dose: 100 mls/hr Sodium Chloride (Normal Saline -) 1,000 mls @ 75 mls/hr IV ASDIR [facility] Last Admin: 05/17/17 02:14 Dose: 75 mls/hr Insulin Aspart (Novolog Vial) 5 units SQ BIDAC [facility] Last Admin: 05/17/17 06:34 Dose: 5 units Insulin Aspart (Novolog Vial Sliding Scale -) 1 vial SQ TIDAC [facility] PRN Reason: Protocol Last Admin: 05/17/17 12:13 Dose: 2 unit Insulin Detemir (Levemir Vial) 20 units SQ AM [facility] Last Admin: 05/17/17 06:34 Dose: 20 unit Losartan Potassium (Cozaar -) 50 mg PO BID [facility] Last Admin: 05/17/17 10:05 Dose: 50 mg Nebivolol (Bystolic -) 5 mg PO DAILY [facility] Last Admin: 05/17/17 10:05 Dose: 5 mg Ondansetron HCl (Zofran Injection) 4 mg IVPUSH Q6H PRN PRN Reason: NAUSEA Last Admin: 05/13/17 23:13 Dose: 4 mg Sitagliptin Phosphate (Januvia -) 100 mg PO DAILY@0700 [facility] Last Admin: 05/17/17 06:33 Dose: 100 mg - Objective Vital Signs: Vital Signs Temperature 98.6 F 05/17/17 06:00 Pulse Rate 65 05/17/17 06:00 Respiratory Rate 20 05/17/17 06:00 Blood Pressure 115/68 05/17/17 06:00 O2 Sat by Pulse Oximetry (%) 98 05/16/17 09:00 Elderly F feels improved feels HEENT: Mm dry, mold anemia, PERRLA EOMI NECK: No JVd No Bruit CHEST: CTAB/L CVS: S1S2 R no m/g/r ABD: No distention, non tender Bs + EXT: No Tenderness No edema feet, no 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; 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 Labs: CBC, BMP 05/17/17 07:15 05/17/17 07:15 INR, PTT INR 1.27 (0.82-1.09) H 05/12/17 13:36 Problem List - Problems (1) UTI (urinary tract infection) Assessment/Plan: So far U Culture -ve, on Entrapenem say 5thrd Code(s): N39.0 - URINARY TRACT INFECTION, SITE NOT SPECIFIED (2) Sepsis Assessment/Plan: Due to UTI Grew ESBL E Colli on Entrapenem day 4th, PCN allergy will observe closely Rpt Blood culture on 03/16/2018 Code(s): A41.9 - SEPSIS, UNSPECIFIED ORGANISM (3) T2DM (type 2 diabetes mellitus) Assessment/Plan: PO Meds on Hold on reduced dose Lantus and correction dose insulin , optimzea s per FS Code(s): E11.9 - TYPE 2 DIABETES MELLITUS WITHOUT COMPLICATIONS (4) HTN (hypertension) Assessment/Plan: Well controlled cont home meds Code(s): I10 - ESSENTIAL (PRIMARY) HYPERTENSION (5) CAD (coronary artery disease) Assessment/Plan: S/P Stent cont home meds Code(s): I25.10 - ATHSCL HEART DISEASE OF [place] CORONARY ARTERY W/O ANG PCTRS (6) Nausea & vomiting Code(s): R11.2 - NAUSEA WITH VOMITING, UNSPECIFIED (7) Anemia Assessment/Plan: F/U anemia w/u Code(s): D64.9 - ANEMIA, UNSPECIFIED
[2017-05-17] MEDS: ATORVASTATIN CA 40 MG TABLET (FP) PO SCH (21:54)
[2017-05-18] MEDS: INSULIN (NOVOLOG) ASPART 100 UNITS/ML 10ML VIAL SQ SCH ×2 (06:29→18:08)
[2017-05-18] MEDS: sitaGLIPtin PHOSPHATE 100 MG TABLET (FP) PO SCH (06:29)
[2017-05-18] MEDS: INSULIN SLIDING SCALE (NOVOLOG) 1 VIAL SQ SCH ×3 (06:30→18:07)
[2017-05-18] MEDS: INSULIN DETEMIR 100 UNITS/ML MDV SQ SCH (06:30)
[2017-05-18] MEDS: ERTAPENEM SODIUM 1 GM in SODIUM CHLORIDE 100 ML IVPB SCH (09:48)
[2017-05-18] MEDS: LOSARTAN POTASSIUM 50 MG TABLET (FP) PO SCH ×2 (10:11→21:21)
[2017-05-18] MEDS: ASPIRIN 81 MG CHEWABLE TABLETS PO SCH (10:11)
[2017-05-18] MEDS: GABAPENTIN 300 MG CAPSULE (FP) PO SCH (10:11)
[2017-05-18] MEDS: NEBIVOLOL 5 MG TABLET (FP) PO SCH (10:22)
[2017-05-18] MEDS: FAMOTIDINE 20 MG/50 ML IVPB 20 MG/50 ML MG IVPB SCH ×2 (11:15→21:21)
[2017-05-18] MEDS ORDERED: INSULIN (NOVOLOG) ASPART 100 UNITS/ML 10ML VIAL ONE (11:46)
--- NOTE | 2017-05-18 12:18 | PN ---
Progress Note, Physician Chief Complaint: Comfortable afebrile abx day 6th History of Present Illness: 67 yrs old F with H/O HTN, T2DM on Insulin, CAD s/p PCI , Dyslipedemia, has been having UTI for past few months completed multiple course of Abx recently completed Ciproflaxacin 1 wk ago on visited Ed with dysuria, Rt CVA pain, nausea, fever and chills,patient was Dc Home on Po Levofloxacin blood culture drawn in Ed grew ESBL E colli Ertapenem day 5th - Current Medication List Current Medications: Active Medications Acetaminophen (Tylenol -) 650 mg PO Q6H PRN PRN Reason: PAIN LEVEL 1-6 Last Admin: 05/15/17 06:41 Dose: 650 mg Albuterol/Ipratropium (Duoneb -) 1 amp NEB Q6H PRN PRN Reason: SHORTNESS OF BREATH Aspirin (Asa -) 81 mg PO DAILY [facility] Last Admin: 05/18/17 10:11 Dose: 81 mg Atorvastatin Calcium (Lipitor -) 40 mg PO HS [facility] Last Admin: 05/17/17 21:54 Dose: 40 mg Gabapentin (Neurontin -) 300 mg PO DAILY [facility] Last Admin: 05/18/17 10:11 Dose: 300 mg Guaifenesin (Robitussin Dm -) 10 ml PO Q8H PRN PRN Reason: COUGH Last Admin: 05/17/17 10:33 Dose: 10 ml Ertapenem 1 gm/ Sodium (Chloride) 100 mls @ 200 mls/hr IVPB DAILY [facility] Last Admin: 05/18/17 09:48 Dose: 200 mls/hr Famotidine/Sodium Chloride (Pepcid 20 Mg Premixed Ivpb -) 20 mg in 50 mls @ 100 mls/hr IVPB BID [facility] Last Admin: 05/18/17 11:15 Dose: 100 mls/hr Insulin Aspart (Novolog Vial) 5 units SQ BIDAC [facility] Last Admin: 05/18/17 06:29 Dose: 5 units Insulin Aspart (Novolog Vial Sliding Scale -) 1 vial SQ TIDAC [facility] PRN Reason: Protocol Last Admin: 05/18/17 12:00 Dose: Not Given Insulin Detemir (Levemir Vial) 20 units SQ AM [facility] Last Admin: 05/18/17 06:30 Dose: 20 unit Losartan Potassium (Cozaar -) 50 mg PO BID [facility] Last Admin: 05/18/17 10:11 Dose: 50 mg Nebivolol (Bystolic -) 5 mg PO DAILY [facility] Last Admin: 05/18/17 10:22 Dose: 5 mg Ondansetron HCl (Zofran Injection) 4 mg IVPUSH Q6H PRN PRN Reason: NAUSEA Last Admin: 05/13/17 23:13 Dose: 4 mg Sitagliptin Phosphate (Januvia -) 100 mg PO DAILY@0700 [facility] Last Admin: 05/18/17 06:29 Dose: 100 mg - Objective Vital Signs: Vital Signs Temperature 97.9 F 05/18/17 06:00 Pulse Rate 62 05/18/17 06:00 Respiratory Rate 18 05/18/17 06:00 Blood Pressure 120/57 05/18/17 06:00 O2 Sat by Pulse Oximetry (%) 98 05/17/17 21:00 Elderly F feels improved feels HEENT: Mm dry, mold anemia, PERRLA EOMI NECK: No JVd No Bruit CHEST: CTAB/L CVS: S1S2 R no m/g/r ABD: No distention, non tender Bs + EXT: No Tenderness No edema feet, 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; 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 Labs: CBC, BMP 05/17/17 07:15 05/17/17 07:15 INR, PTT INR 1.27 (0.82-1.09) H 05/12/17 13:36 Problem List - Problems (1) UTI (urinary tract infection) Assessment/Plan: So far U Culture -ve, on Entrapenem say 5thrd Code(s): N39.0 - URINARY TRACT INFECTION, SITE NOT SPECIFIED (2) Sepsis Assessment/Plan: Due to UTI Grew ESBL E Colli on Entrapenem day 4th, PCN allergy will observe closely Rpt Blood culture on 03/16/2018 Code(s): A41.9 - SEPSIS, UNSPECIFIED ORGANISM (3) T2DM (type 2 diabetes mellitus) Assessment/Plan: PO Meds on Hold on reduced dose Lantus and correction dose insulin , optimzea s per FS Code(s): E11.9 - TYPE 2 DIABETES MELLITUS WITHOUT COMPLICATIONS (4) HTN (hypertension) Assessment/Plan: Well controlled cont home meds Code(s): I10 - ESSENTIAL (PRIMARY) HYPERTENSION (5) CAD (coronary artery disease) Assessment/Plan: S/P Stent cont home meds Code(s): I25.10 - ATHSCL HEART DISEASE OF [place] CORONARY ARTERY W/O ANG PCTRS (6) Nausea & vomiting Assessment/Plan: Improving Code(s): R11.2 - NAUSEA WITH VOMITING, UNSPECIFIED (7) Anemia Assessment/Plan: F/U anemia w/u Code(s): D64.9 - ANEMIA, UNSPECIFIED
--- NOTE | 2017-05-18 15:25 | PN ---
Progress Note, Physician History of Present Illness: doing well no complaints family in room d/w son - Current Medication List Current Medications: Active Medications Acetaminophen (Tylenol -) 650 mg PO Q6H PRN PRN Reason: PAIN LEVEL 1-6 Last Admin: 05/15/17 06:41 Dose: 650 mg Albuterol/Ipratropium (Duoneb -) 1 amp NEB Q6H PRN PRN Reason: SHORTNESS OF BREATH Aspirin (Asa -) 81 mg PO DAILY [facility] Last Admin: 05/18/17 10:11 Dose: 81 mg Atorvastatin Calcium (Lipitor -) 40 mg PO HS [facility] Last Admin: 05/17/17 21:54 Dose: 40 mg Gabapentin (Neurontin -) 300 mg PO DAILY [facility] Last Admin: 05/18/17 10:11 Dose: 300 mg Guaifenesin (Robitussin Dm -) 10 ml PO Q8H PRN PRN Reason: COUGH Last Admin: 05/17/17 10:33 Dose: 10 ml Ertapenem 1 gm/ Sodium (Chloride) 100 mls @ 200 mls/hr IVPB DAILY [facility] Last Admin: 05/18/17 09:48 Dose: 200 mls/hr Famotidine/Sodium Chloride (Pepcid 20 Mg Premixed Ivpb -) 20 mg in 50 mls @ 100 mls/hr IVPB BID [facility] Last Admin: 05/18/17 11:15 Dose: 100 mls/hr Insulin Aspart (Novolog Vial) 5 units SQ BIDAC [facility] Last Admin: 05/18/17 06:29 Dose: 5 units Insulin Aspart (Novolog Vial Sliding Scale -) 1 vial SQ TIDAC [facility] PRN Reason: Protocol Last Admin: 05/18/17 12:00 Dose: Not Given Insulin Detemir (Levemir Vial) 20 units SQ AM [facility] Last Admin: 05/18/17 06:30 Dose: 20 unit Losartan Potassium (Cozaar -) 50 mg PO BID [facility] Last Admin: 05/18/17 10:11 Dose: 50 mg Nebivolol (Bystolic -) 5 mg PO DAILY [facility] Last Admin: 05/18/17 10:22 Dose: 5 mg Ondansetron HCl (Zofran Injection) 4 mg IVPUSH Q6H PRN PRN Reason: NAUSEA Last Admin: 05/13/17 23:13 Dose: 4 mg Sitagliptin Phosphate (Januvia -) 100 mg PO DAILY@0700 [facility] Last Admin: 05/18/17 06:29 Dose: 100 mg - Objective Vital Signs: Vital Signs Temperature 97.9 F 05/18/17 06:00 Pulse Rate 64 05/18/17 10:00 Respiratory Rate 18 05/18/17 10:00 Blood Pressure 136/62 05/18/17 10:00 O2 Sat by Pulse Oximetry (%) 99 05/18/17 09:00 Constitutional: Yes: No Distress, Calm Cardiovascular: Yes: Regular Rate and Rhythm Respiratory: Yes: Regular, CTA Bilaterally Gastrointestinal: Yes: Normal Bowel Sounds, Soft Musculoskeletal: Yes: WNL Extremities: Yes: WNL Neurological: Yes: Alert, Oriented Psychiatric: Yes: Alert, Oriented Labs: CBC, BMP 05/17/17 07:15 05/17/17 07:15 INR, PTT INR 1.27 (0.82-1.09) H 05/12/17 13:36 Assessment/Plan Problem List - Problems (1) UTI (urinary tract infection) Code(s): N39.0 - URINARY TRACT INFECTION, SITE NOT SPECIFIED (2) Sepsis Code(s): A41.9 - SEPSIS, UNSPECIFIED ORGANISM (3) T2DM (type 2 diabetes mellitus) Code(s): E11.9 - TYPE 2 DIABETES MELLITUS WITHOUT COMPLICATIONS (4) HTN (hypertension) Code(s): I10 - ESSENTIAL (PRIMARY) HYPERTENSION (5) CAD (coronary artery disease) Code(s): I25.10 - ATHSCL HEART DISEASE OF [place] CORONARY ARTERY W/O ANG PCTRS (6) Hypotension Code(s): I95.9 - HYPOTENSION, UNSPECIFIED (7) Nausea & vomiting Code(s): R11.2 - NAUSEA WITH VOMITING, UNSPECIFIED (8) Anemia Code(s): D64.9 - ANEMIA, UNSPECIFIED (9) Anemia Code(s): D64.9 - ANEMIA, UNSPECIFIED 10 gm negative bacteremia plan continue current abx course for 14 days
[2017-05-18] MEDS: ATORVASTATIN CA 40 MG TABLET (FP) PO SCH (21:21)
[2017-05-19] MEDS: INSULIN (NOVOLOG) ASPART 100 UNITS/ML 10ML VIAL SQ SCH (06:30)
[2017-05-19] MEDS: INSULIN SLIDING SCALE (NOVOLOG) 1 VIAL SQ SCH ×3 (06:30→17:29)
[2017-05-19] MEDS: sitaGLIPtin PHOSPHATE 100 MG TABLET (FP) PO SCH (06:30)
[2017-05-19] MEDS: INSULIN DETEMIR 100 UNITS/ML MDV SQ SCH (06:31)
[2017-05-19 07:54] LABS: BASO % 0.5 % (0-2.0); EOS % 1.7 % (0-4.5); HEMATOCRIT 32.2 % (32.4-45.2); HEMOGLOBIN 10.5 GM/dL (10.7-15.3); LYMPH % 20.9 % (8-40); MCH 30.2 pg (25.7-33.7); MCHC 32.7 g/dl (32.0-36.0); MEAN CELL VOLUME 92.3 fl (80-96); MEAN PLT VOLUME 7.7 fl (7.5-11.1); MONO % 7.1 % (3.8-10.2); NEUT % 69.8 % (42.8-82.8); PLATELET COUNT 375 K/MM3 (134-434); RBC 3.49 M/mm3 (3.60-5.2); RDW 14.5 % (11.6-15.6); WHITE BLOOD COUNT 8.6 K/mm3 (4.0-10.0)
[2017-05-19 08:17] LABS: ANION GAP 6 (8-16); BLOOD UREA NITROGEN 12 mg/dL (7-18); CALCIUM 8.7 mg/dL (8.5-10.1); CHLORIDE 105 mmol/L (98-107); CO2 30 mmol/L (21-32); CREATININE 0.9 mg/dL (0.55-1.02); GLUCOSE,RANDOM 176 mg/dL (74-106); POTASSIUM 4.7 mmol/L (3.5-5.1); SODIUM 141 mmol/L (136-145)
[2017-05-19] MEDS ORDERED: PT OWN MED DRAWER 7, Y5N ONE ×2 (09:35→16:38)
[2017-05-19] MEDS: ASPIRIN 81 MG CHEWABLE TABLETS PO SCH (09:42)
[2017-05-19] MEDS: GABAPENTIN 300 MG CAPSULE (FP) PO SCH (09:42)
[2017-05-19] MEDS: ERTAPENEM SODIUM 1 GM in SODIUM CHLORIDE 100 ML IVPB SCH (09:43)
[2017-05-19] MEDS: NEBIVOLOL 5 MG TABLET (FP) PO SCH (09:43)
[2017-05-19] MEDS: LOSARTAN POTASSIUM 50 MG TABLET (FP) PO SCH (09:43)
[2017-05-19] MEDS: FAMOTIDINE 20 MG/50 ML IVPB 20 MG/50 ML MG IVPB SCH (09:44)
--- NOTE | 2017-05-19 09:55 | PN ---
Progress Note, Physician Chief Complaint: Comfortable afebrile abx day 6th History of Present Illness: 67 yrs old F with H/O HTN, T2DM on Insulin, CAD s/p PCI , Dyslipedemia, has been having UTI for past few months completed multiple course of Abx recently completed Ciproflaxacin 1 wk ago on visited Ed with dysuria, Rt CVA pain, nausea, fever and chills,patient was Dc Home on Po Levofloxacin blood culture drawn in Ed grew ESBL E colli Ertapenem day 5th - Current Medication List Current Medications: Active Medications Acetaminophen (Tylenol -) 650 mg PO Q6H PRN PRN Reason: PAIN LEVEL 1-6 Last Admin: 05/15/17 06:41 Dose: 650 mg Albuterol/Ipratropium (Duoneb -) 1 amp NEB Q6H PRN PRN Reason: SHORTNESS OF BREATH Aspirin (Asa -) 81 mg PO DAILY [facility] Last Admin: 05/19/17 09:42 Dose: 81 mg Atorvastatin Calcium (Lipitor -) 40 mg PO HS [facility] Last Admin: 05/18/17 21:21 Dose: 40 mg Gabapentin (Neurontin -) 300 mg PO DAILY [facility] Last Admin: 05/19/17 09:42 Dose: 300 mg Guaifenesin (Robitussin Dm -) 10 ml PO Q8H PRN PRN Reason: COUGH Last Admin: 05/17/17 10:33 Dose: 10 ml Ertapenem 1 gm/ Sodium (Chloride) 100 mls @ 200 mls/hr IVPB DAILY [facility] Last Admin: 05/19/17 09:43 Dose: 200 mls/hr Famotidine/Sodium Chloride (Pepcid 20 Mg Premixed Ivpb -) 20 mg in 50 mls @ 100 mls/hr IVPB BID [facility] Last Admin: 05/19/17 09:44 Dose: 100 mls/hr Insulin Aspart (Novolog Vial) 5 units SQ BIDAC [facility] Last Admin: 05/19/17 06:30 Dose: 5 units Insulin Aspart (Novolog Vial Sliding Scale -) 1 vial SQ TIDAC [facility] PRN Reason: Protocol Last Admin: 05/19/17 06:30 Dose: 2 unit Insulin Detemir (Levemir Vial) 20 units SQ AM [facility] Last Admin: 05/19/17 06:31 Dose: 20 unit Losartan Potassium (Cozaar -) 50 mg PO BID [facility] Last Admin: 05/19/17 09:43 Dose: 50 mg Nebivolol (Bystolic -) 5 mg PO DAILY [facility] Last Admin: 05/19/17 09:43 Dose: 5 mg Ondansetron HCl (Zofran Injection) 4 mg IVPUSH Q6H PRN PRN Reason: NAUSEA Last Admin: 05/13/17 23:13 Dose: 4 mg Sitagliptin Phosphate (Januvia -) 100 mg PO DAILY@0700 [facility] Last Admin: 05/19/17 06:30 Dose: 100 mg - Objective Vital Signs: Vital Signs Temperature 97.8 F 05/19/17 06:30 Pulse Rate 66 05/19/17 06:30 Respiratory Rate 16 05/19/17 06:30 Blood Pressure 110/66 05/19/17 06:30 O2 Sat by Pulse Oximetry (%) 99 05/18/17 21:00 Elderly F feels improved feels HEENT: Mm dry, mold anemia, PERRLA EOMI NECK: No JVd No Bruit CHEST: CTAB/L CVS: S1S2 R no m/g/r ABD: No distention, non tender Bs + EXT: No Tenderness No edema feet, 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 Code(s): N39.0 - URINARY TRACT INFECTION, SITE NOT SPECIFIED (2) Sepsis Assessment/Plan: Due to UTI Grew ESBL E Colli , tolerating Entrapenem , PCN allergy will observe closely, Rpt Blood culture on 03/16/2018 are -ve will f/u ID recommopndation for discharge and duration of abx. Code(s): A41.9 - SEPSIS, UNSPECIFIED ORGANISM (3) T2DM (type 2 diabetes mellitus) Assessment/Plan: PO Meds on Hold on reduced dose Lantus and correction dose insulin , optimzea s per FS Code(s): E11.9 - TYPE 2 DIABETES MELLITUS WITHOUT COMPLICATIONS (4) HTN (hypertension) Assessment/Plan: Well controlled cont home meds Code(s): I10 - ESSENTIAL (PRIMARY) HYPERTENSION (5) CAD (coronary artery disease) Assessment/Plan: S/P Stent cont home meds Code(s): I25.10 - ATHSCL HEART DISEASE OF [place] CORONARY ARTERY W/O ANG PCTRS (6) Anemia Assessment/Plan: F/U anemia w/u Code(s): D64.9 - ANEMIA, UNSPECIFIED
[2017-05-19] MEDS: ACETAMINOPHEN 325 MG TABLET (FP) PO PRN (11:14)
--- NOTE | 2017-05-19 11:59 | PN ---
Progress Note, Physician History of Present Illness: occasional headache otherwise stable - Current Medication List Current Medications: Active Medications Acetaminophen (Tylenol -) 650 mg PO Q6H PRN PRN Reason: PAIN LEVEL 1-6 Last Admin: 05/19/17 11:14 Dose: 650 mg Albuterol/Ipratropium (Duoneb -) 1 amp NEB Q6H PRN PRN Reason: SHORTNESS OF BREATH Aspirin (Asa -) 81 mg PO DAILY [facility] Last Admin: 05/19/17 09:42 Dose: 81 mg Atorvastatin Calcium (Lipitor -) 40 mg PO HS [facility] Last Admin: 05/18/17 21:21 Dose: 40 mg Gabapentin (Neurontin -) 300 mg PO DAILY [facility] Last Admin: 05/19/17 09:42 Dose: 300 mg Guaifenesin (Robitussin Dm -) 10 ml PO Q8H PRN PRN Reason: COUGH Last Admin: 05/17/17 10:33 Dose: 10 ml Ertapenem 1 gm/ Sodium (Chloride) 100 mls @ 200 mls/hr IVPB DAILY [facility] Last Admin: 05/19/17 09:43 Dose: 200 mls/hr Famotidine/Sodium Chloride (Pepcid 20 Mg Premixed Ivpb -) 20 mg in 50 mls @ 100 mls/hr IVPB BID [facility] Last Admin: 05/19/17 09:44 Dose: 100 mls/hr Insulin Aspart (Novolog Vial) 5 units SQ BIDAC [facility] Last Admin: 05/19/17 06:30 Dose: 5 units Insulin Aspart (Novolog Vial Sliding Scale -) 1 vial SQ TIDAC [facility] PRN Reason: Protocol Last Admin: 05/19/17 06:30 Dose: 2 unit Insulin Detemir (Levemir Vial) 20 units SQ AM [facility] Last Admin: 05/19/17 06:31 Dose: 20 unit Losartan Potassium (Cozaar -) 50 mg PO BID [facility] Last Admin: 05/19/17 09:43 Dose: 50 mg Nebivolol (Bystolic -) 5 mg PO DAILY [facility] Last Admin: 05/19/17 09:43 Dose: 5 mg Ondansetron HCl (Zofran Injection) 4 mg IVPUSH Q6H PRN PRN Reason: NAUSEA Last Admin: 05/13/17 23:13 Dose: 4 mg Sitagliptin Phosphate (Januvia -) 100 mg PO DAILY@0700 [facility] Last Admin: 05/19/17 06:30 Dose: 100 mg - Objective Vital Signs: Vital Signs Temperature 98.5 F 05/19/17 10:00 Pulse Rate 67 05/19/17 10:00 Respiratory Rate 16 05/19/17 10:00 Blood Pressure 110/60 05/19/17 10:00 O2 Sat by Pulse Oximetry (%) 99 05/18/17 21:00 Constitutional: Yes: No Distress, Calm Cardiovascular: Yes: Regular Rate and Rhythm Respiratory: Yes: Regular, CTA Bilaterally Gastrointestinal: Yes: Normal Bowel Sounds, Soft Musculoskeletal: Yes: WNL Extremities: Yes: WNL Neurological: Yes: Alert, Oriented Psychiatric: Yes: Alert, Oriented Labs: CBC, BMP 05/19/17 06:30 05/19/17 06:30 INR, PTT INR 1.27 (0.82-1.09) H 05/12/17 13:36 Assessment/Plan Problem List - Problems (1) UTI (urinary tract infection) Code(s): N39.0 - URINARY TRACT INFECTION, SITE NOT SPECIFIED (2) Sepsis Code(s): A41.9 - SEPSIS, UNSPECIFIED ORGANISM (3) T2DM (type 2 diabetes mellitus) Code(s): E11.9 - TYPE 2 DIABETES MELLITUS WITHOUT COMPLICATIONS (4) HTN (hypertension) Code(s): I10 - ESSENTIAL (PRIMARY) HYPERTENSION (5) CAD (coronary artery disease) Code(s): I25.10 - ATHSCL HEART DISEASE OF [place] CORONARY ARTERY W/O ANG PCTRS (6) Hypotension Code(s): I95.9 - HYPOTENSION, UNSPECIFIED (7) Nausea & vomiting Code(s): R11.2 - NAUSEA WITH VOMITING, UNSPECIFIED (8) Anemia Code(s): D64.9 - ANEMIA, UNSPECIFIED (9) Anemia Code(s): D64.9 - ANEMIA, UNSPECIFIED 10 gm negative bacteremia plan continue current abx course for 14 days repeat cx negative rest as per primary team
--- NOTE | 2017-05-19 13:08 | EKG ---
Test Reason : Blood Pressure : / mmHG Vent. Rate : 081 BPM Atrial Rate : 081 BPM P-R Int : 162 ms QRS Dur : 080 ms QT Int : 398 ms P-R-T Axes : 035 030 045 degrees QTc Int : 462 ms NORMAL SINUS RHYTHM NORMAL ECG WHEN COMPARED WITH ECG OF 12-MAY-2017 13:59, NO SIGNIFICANT CHANGE WAS FOUND Confirmed by CIARA JIANG MD ([id number]) on 05/19/2017 1:08:30 PM Referred By: Confirmed By:CIARA JIANG MD
--- NOTE | 2017-05-19 13:16 | DS ---
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 Labs: CBC, BMP 05/19/17 06:30 05/19/17 06:30 Discharge Summary Reason For Visit: UTI with Sepsis called back for + Blood Culture Current Active Problems Anemia (Acute) CAD (coronary artery disease) (Acute) Dyslipidemia (Acute) HTN (hypertension) (Acute) Hypotension (Acute) Nausea & vomiting (Acute) Pneumonia (Acute) Sepsis (Acute) T2DM (type 2 diabetes mellitus) (Acute) UTI (urinary tract infection) (Acute) Hospital Course: 67 yrs old F with H/O HTN, T2DM on Insulin, CAD s/p PCI , Dyslipedemia, has been having UTI for past few months completed multiple course of Abx recently completed Ciproflaxacin 1 wk ago on visited Ed with dysuria, Rt CVA pain, nausea, fever and chills,patient was Dc Home on Po Levofloxacin blood culture drawn in Ed grew GNB non fermenters called back for evaluation, patient still c/o fever, cough, dysuria, Rt CVA tenderness, UA + Blood culture Grew ESBL E Colli , patient improved with IV Ertapenem, Rpt blood Cultures are -ve on 05/16/2017, Cleared by ID for 6 days Home IV abx, patient also c/o dry cough at night minimal wheezes add Advair with good response. Patient will be Dc Home after arrangement of IV abx at Home F/U with ID and PCP in a wk. Condition: Fair - Instructions Referrals: Chriss Roblero MD [Primary Care Provider] - Seb De Anda MD [Staff Physician] - Monster Antunez MD [Staff Physician] - 1 Week Disposition: VNS/HOME HEALTH CARE - Home Medications Comprehensive Discharge Medication List: Ambulatory Orders Aspirin [ASA -] 81 mg PO DAILY 05/12/17 Atorvastatin Ca [Lipitor] 40 mg PO DAILY 05/12/17 Calcium Carbonate/Vitamin D3 [Calcium 600-Vit D3 400 Tablet] 1 each PO DAILY Famotidine [Pepcid] 20 mg PO BID 05/12/17 Gabapentin 300 mg PO DAILY 05/12/17 Insulin Lispro [Humalog] 15 unit SQ BIDAC 05/12/17 Linagliptin [Tradjenta] 5 mg PO DAILY 05/12/17 Losartan Potassium [Cozaar -] 50 mg PO DAILY 05/12/17 Nebivolol [Bystolic -] 5 mg PO DAILY 05/12/17 Ertapenem Sodium [Invanz -] 1 gm IVPB DAILY 6 Days #6 vial 05/19/17 Guaifenesin Dm [Robitussin Dm -] 10 ml PO Q8H PRN 5 Days #1 cup 05/19/17 Insulin (Levemir) [Levemir Vial] 20 units SQ AM 30 Days #1 ml 05/19/17 Salmeterol/Fluticasone [Advair 100Mcg/50Mcg -] 1 puff IH BID inhaler 05/19/17
[2017-05-19] MEDS ORDERED: PICC LINE 8 ML FLUSH PROTOCOL IVPUSH PRN (13:38)
[2017-05-19 14:52] VITALS: BP 127/56; PULSE 63; TEMP 98.8
[2017-05-19] MEDS ORDERED: FLUTICASONE/SALMETEROL 100 MCG/50 MCG DISKUS IH SCH (15:00)
== END 2017-05-19 18:40 | disposition home health service (06) | DRG 872 ==
LOC: JER 09:35 → JERBED 14:39 → J8W 20:35 → J5S 05-16 10:07
PROVIDERS: ADMIT Internal Medicine; ATTEND Internal Medicine
DX: A41.9 Sepsis, unspecified organism (principal); N39.0 Urinary tract infection, site not specified; E11.9 Type 2 diabetes mellitus without complications; I25.10 Atherosclerotic heart disease of native coronary artery without angina pectoris; Z98.61 Coronary angioplasty status; D64.9 Anemia, unspecified; I95.9 Hypotension, unspecified; R11.2 Nausea with vomiting, unspecified; E78.5 Hyperlipidemia, unspecified; Z16.19 Resistance to other specified beta lactam antibiotics
CPT/HCPCS: 36415; 36569; 71045-TC; 77001-TC; 80048; 80053; 81003; 81015; 82550; 82607; 82728; 82803; 82962; 83036; 83540; 83550; 83605; 83735; 84484; 85025; 85610; 85730; 86850; 86900; 86901; 87040; 87086; 87186; 93005; 93010; 99284-25; C1751

== ENCOUNTER 2017-07-27 14:10 | Inpatient (IN) | payer OTHER ==
[2017-07-27 14:15] VITALS: BMI 27.3
--- NOTE | 2017-07-27 14:47 | PDOC ---
History of Present Illness - General Chief Complaint: Pain Stated Complaint: ABD PAIN/URINARY BURNING Time Seen by Provider: 07/27/17 14:40 - History of Present Illness Initial Comments: 07/27/17 14:43 67 yo F with h/o HTN, IDDM, CAD s/p PCI, who presents with abdominal pain. Pt. reports 3 days of unremitting, midabdominal, sharp pain x 3 days with no radiation. Pain present at rest and exacerbated with movement and walking. Also endorses dysuria x 1 day, with increased urinary frequency, and no hematuria. Denies F/C, N/V, CP, SOB, abdominal pain, diarrhea, constipation, weakness, lightheadedness, sensory changes. Recent admission ( 05/12-05/19/17) [facility] for UTI and sepsis. Blood culture with ESBL. Denies alcohol use. Past History - Past Medical History Allergies/Adverse Reactions: Allergies Allergy/AdvReac Type Severity Reaction Status Date / Time Penicillins Allergy Severe Swelling Verified 07/27/17 14:16 amoxicillin Allergy Verified 07/27/17 14:16 Home Medications: Ambulatory Orders Aspirin [ASA -] 81 mg PO DAILY 05/12/17 Atorvastatin Ca [Lipitor] 40 mg PO DAILY 05/12/17 Calcium Carbonate/Vitamin D3 [Calcium 600-Vit D3 400 Tablet] 1 each PO DAILY Famotidine [Pepcid] 20 mg PO BID 05/12/17 Gabapentin 300 mg PO DAILY 05/12/17 Insulin Lispro [Humalog] 15 unit SQ BIDAC 05/12/17 Linagliptin [Tradjenta] 5 mg PO DAILY 05/12/17 Losartan Potassium [Cozaar -] 50 mg PO DAILY 05/12/17 Nebivolol [Bystolic -] 5 mg PO DAILY 05/12/17 Ertapenem Sodium [Invanz -] 1 gm IVPB DAILY 6 Days #6 vial 05/19/17 Guaifenesin Dm [Robitussin Dm -] 10 ml PO Q8H PRN 5 Days #1 cup 05/19/17 Insulin (Levemir) [Levemir Vial] 20 units SQ AM 30 Days #1 ml 05/19/17 Salmeterol/Fluticasone [Advair 100Mcg/50Mcg -] 1 puff IH BID inhaler 05/19/17 COPD: No DVT: No Diabetes: Yes HTN: Yes Hypercholesterolemia: Yes - Suicide/Smoking/Psychosocial Hx Smoking History: Never smoked Have you smoked in the past 12 months: No Information on smoking cessation initiated: No Hx Alcohol Use: No Drug/Substance Use Hx: No Substance Use Type: None Review of Systems - Review of Systems Comments:: 07/27/17 14:42 GENERAL/CONSTITUTIONAL: No fever or chills. No weakness. HEAD, EYES, EARS, NOSE AND THROAT: No change in vision. No ear pain or discharge. No sore throat. CARDIOVASCULAR: No chest pain or shortness of breath RESPIRATORY: No cough, wheezing, or hemoptysis. GASTROINTESTINAL: + Abdominal pain. No nausea, vomiting, diarrhea or constipation. GENITOURINARY: + dysuria,and frequency. . MUSCULOSKELETAL: No joint or muscle swelling or pain. No neck or back pain. SKIN: No rash NEUROLOGIC: No headache, vertigo, loss of consciousness, or change in strength/ sensation. ENDOCRINE: No increased thirst. No abnormal weight change HEMATOLOGIC/LYMPHATIC: No anemia, easy bleeding, or history of blood clots. ALLERGIC/IMMUNOLOGIC: No hives or skin allergy. *Physical Exam - Vital Signs Last Vital Signs Temp Pulse Resp BP Pulse Ox 97.5 F L 68 18 129/70 99 07/27/17 14:13 07/27/17 14:13 07/27/17 14:13 07/27/17 14:13 07/27/17 14:13 - Physical Exam Comments: 07/27/17 14:43 GENERAL: Awake, alert, and fully oriented, in no acute distress HEAD: No signs of trauma, normocephalic, atraumatic EYES: PERRLA, EOMI, sclera anicteric, conjunctiva clear ENT: Hearing grossly normal, nares patent, oropharynx clear without exudates. Moist mucosa NECK: Normal ROM, supple, no lymphadenopathy, JVD, or masses LUNGS: No distress, speaks full sentences, clear to auscultation bilaterally HEART: Regular rate and rhythm, normal S1 and S2, no murmurs, rubs or gallops, peripheral pulses normal and equal bilaterally. ABDOMEN: Soft, L and R midabdominal ttp, + Suprapubic ttp. normoactive bowel sounds. No guarding, no rebound. No masses. Neg CVA ttp. EXTREMITIES : Normal inspection, Normal range of motion, no edema. No clubbing or cyanosis. SKIN: Warm, Dry, normal turgor, no rashes or lesions noted ED Treatment Course - LABORATORY CBC & Chemistry Diagram: 07/27/17 15:17 07/27/17 17:52 Medical Decision Making - Medical Decision Making 07/27/17 15:22 67 yo F with h/o HTN, IDDM, CAD s/p PCI, who presents with 3 days of unremitting , midabdominal, sharp pain x 3 days with no radiation. Pain present at rest and exacerbated with movement and walking. Dysuria x 1 day, with increased urinary frequency, and no hematuria. Denies F/C, N/V, CP, SOB, abdominal pain, diarrhea , constipation, weakness, lightheadedness, sensory changes. Recent admission ( -05/19/17) [facility] for UTI and sepsis. Blood culture with ESBL. Physical exam with R and L focal midabdominal ttp, and suprpaubic ttp. HDS. S/s most likely 2/ 2 cystitis vs. pyelonephritis. No obstructive symptoms. Midabominal ttp suspicious for GI vs MSK etiology. ED Course: CBC, CMP UA, Urine Cx. 07/27/17 15:24 07/27/17 18:06 UA: Trace leuks, 13 WBC CBC: Unremarkable Spoke to Dr.Azeez Banerjee answering service. Dr. Field is it communications manager. 07/27/17 19:[address] Antunez, will start pt. on Ertopenem and ordered KUB. Admitted to Dr. Field/Osbaldo inpt. *DC/Admit/Observation/Transfer - Referrals Referrals: Chriss Roblero MD [Primary Care Provider] - - Patient Instructions Additional Instructions: Please return to the emergency department with any new or worsening symptoms or concerns. Please follow up with your primary care physician within 72 hours. - Post Discharge Activity - Attestations Physician Attestion: 07/27/17 14:44 I attest to the information provided in this note.
[2017-07-27 14:49] LABS: URINE APPEARANCE CLEAR; URINE BILIRUBIN NEGATIVE (<2.0 mg/dL); URINE BLOOD NEGATIVE (NEGATIVE); URINE COLOR COLORLESS; URINE GLUCOSE (UA) NEGATIVE (NEGATIVE); URINE KETONE NEGATIVE (NEGATIVE); URINE LEUK ESTERASE TRACE (NEGATIVE); URINE NITRITE NEGATIVE (NEGATIVE); URINE PROTEIN NEGATIVE (NEGATIVE); URINE UROBILINOGEN NEGATIVE mg/dL (0.2-1.0)
[2017-07-27 14:52] LABS: EPI CELLS RARE /HPF (FEW)
[2017-07-27 16:00] LABS: BASO % 0.4 % (0-2.0); EOS % 1.1 % (0-4.5); HEMATOCRIT 35.5 % (32.4-45.2); HEMOGLOBIN 11.9 GM/dL (10.7-15.3); LYMPH % 29.4 % (8-40); MCH 31.9 pg (25.7-33.7); MCHC 33.4 g/dl (32.0-36.0); MEAN CELL VOLUME 95.4 fl (80-96); MEAN PLT VOLUME 8.5 fl (7.5-11.1); MONO % 5.9 % (3.8-10.2); NEUT % 63.2 % (42.8-82.8); PLATELET COUNT 245 K/MM3 (134-434); RBC 3.73 M/mm3 (3.60-5.2); RDW 13.6 % (11.6-15.6); WHITE BLOOD COUNT 6.9 K/mm3 (4.0-10.0)
--- NOTE | 2017-07-27 16:28 | EKG ---
Test Reason : Blood Pressure : / mmHG Vent. Rate : 066 BPM Atrial Rate : 066 BPM P-R Int : 166 ms QRS Dur : 076 ms QT Int : 402 ms P-R-T Axes : 022 002 022 degrees QTc Int : 421 ms NORMAL SINUS RHYTHM NORMAL ECG WHEN COMPARED WITH ECG OF 15-MAY-2017 11:51, NO SIGNIFICANT CHANGE WAS FOUND Confirmed by HORACIO SANTIAGO MD ([id number]) on 07/27/2017 4:27:36 PM Referred By: Confirmed By:HORACIO SANTIAGO MD
[2017-07-27 18:11] LABS: ALBUMIN 3.8 g/dl (3.4-5.0); ANION GAP 4 (8-16); BLOOD UREA NITROGEN 9 mg/dL (7-18); CHLORIDE 108 mmol/L (98-107); CO2 30 mmol/L (21-32); CREATININE 0.7 mg/dL (0.55-1.02); GLUCOSE,RANDOM 73 mg/dL (74-106); LIPASE 147 U/L (73-393); POTASSIUM 4.4 mmol/L (3.5-5.1); SGOT/AST 19 U/L (15-37); SGPT/ALT 24 U/L (12-78); SODIUM 142 mmol/L (136-145)
[2017-07-27 18:12] LABS: ALK PHOS 51 U/L (45-117); BILIRUBIN,TOTAL 0.2 mg/dL (0.2-1.0); TOT PROT 7.8 g/dl (6.4-8.2)
--- NOTE | 2017-07-27 18:21 | PDOC ---
Attending Attestation - Resident Resident Name: Butch Stratton - ED Attending Attestation I have performed the following: I have examined & evaluated the patient, The case was reviewed & discussed with the resident, I agree w/resident's findings & plan, Exceptions are as noted - Medical Decision Making 07/27/17 18:19 67 yo F with h/o; DM , recent uti, sepsis, resistant uti, here wtih urinary complaints nausea and abd pain. differential; pancreatitis, cholecystitis, uti, sepsis, gerd. plan ekg labs ua urine cultures. urine positive for uti, will require admission due to resistant pattern <Ann Castillo - Last Filed: 07/27/17 18:19> - HPI HPI: 07/27/17 18:24 The patient is a 67-year-old female, with a past medical history of HTN, IDDM, CAD s/p PCI, who presents to the ED with 3 days abdominal pain. She describes the pain as constant, localized to the mid-abdominal region, sharp in sensation , exacerbated with movement and walking, and alleviated when the patient is at rest. Patient also reports 1 day of dysuria with increased urinary frequency. She denies any hematuria or hematochezia. The patient denies any fever, chills, nausea, vomiting, diarrhea, or constipation. Denies any shortness of breath or chest pain. Allergies: Penicillins, amoxicillin. Social History: Denies alcohol use. PCP: Dr. Chriss Roblero - Physicial Exam PE: 07/27/17 18:25 GENERAL: Awake, alert, and fully oriented, in no acute distress HEAD: No signs of trauma EYES: PERRLA, EOMI, sclera anicteric, conjunctiva clear ENT: Auricles normal inspection, nares patent, oropharynx clear without exudates. Moist mucosa. NECK: Normal ROM, supple, no lymphadenopathy, JVD, or masses LUNGS: Breath sounds equal, clear to auscultation bilaterally. No wheezes, and no crackles HEART: Regular rate and rhythm, normal S1 and S2, no murmurs, rubs or gallops ABDOMEN: (+)Mild epigastric tenderness. Soft, normoactive bowel sounds. No guarding, no rebound. No masses EXTREMITIES: Normal range of motion, no edema. No tenderness NEUROLOGICAL: Alert and oriented x 3. Moves all extremities. Face is symmetric. SKIN: Warm, Dry, normal turgor, no rashes or lesions noted <Rita Schmidt - Last Filed: 07/27/17 18:26> Attestations - Attestations 07/27/17 18:26 Documentation prepared by Rita Schmidt, acting as medical research scientist for Ann Castillo MD. <Rita Schmidt - Last Filed: 07/27/17 18:26>
[2017-07-27 18:30] LABS: ALBUMIN 3.9 g/dl (3.4-5.0); ALK PHOS 51 U/L (45-117); ANION GAP 4 (8-16); BILIRUBIN,TOTAL 0.2 mg/dL (0.2-1.0); BLOOD UREA NITROGEN 8 mg/dL (7-18); CHLORIDE 108 mmol/L (98-107); CO2 29 mmol/L (21-32); CREATININE 0.7 mg/dL (0.55-1.02); GLUCOSE,RANDOM 69 mg/dL (74-106); POTASSIUM 4.8 mmol/L (3.5-5.1); SGOT/AST 19 U/L (15-37); SGPT/ALT 24 U/L (12-78); SODIUM 141 mmol/L (136-145)
[2017-07-27] MEDS ORDERED: ERTAPENEM SODIUM 1 GM in SODIUM CHLORIDE 50 ML IVPB ONE (18:55)
[2017-07-27] MEDS ORDERED: ERTAPENEM SODIUM 1 GM VIAL ONE (19:09)
--- NOTE | 2017-07-28 10:27 | HP ---
DATE OF ADMISSION: HISTORY: A 67-year-old female of origin known to have hypertension and diabetes who came to the emergency room with complaints of abdominal pain. She also has pain in the legs. Patient with a possible diagnosis of UTI, abdominal pain. She got a dose of antibiotics this morning. Still complaining of epigastric pain. She has a history of fatty liver. PHYSICAL EXAMINATION: General: Awake, alert, and oriented not in distress. Vital Signs: BP 130/80, pulse 72, respirations 20, temperature 98. HEENT: Unremarkable. Neck: Supple. No JVD. Lungs: Clear. Heart: S1, S2 normal. No S3, S4. Abdomen: Soft and nontender. No hepatosplenomegaly. Extremities: Legs, no clinical evidence of DVT. Neurologic: Grossly normal. LABORATORY DATA: Urine leukocyte trace positive WBC 13. Chemistry: Sodium 141, potassium 4.8, chloride 108, CO2 is 29, BUN 8, creatinine 0.7, blood sugar 69. WBC 6.9, hemoglobin 11.9. IMPRESSION: 1. Urinary tract infection. 2. Abdominal pain. PLAN: We will admit for possible UTI antibiotics. Aman [id number]
[2017-07-28] MEDS ORDERED: guaiFENesin/D-METHORPHAN HB 10 ML UNIT-DOSE CUPS PO PRN (16:06)
[2017-07-28] MEDS ORDERED: INSULIN (NOVOLOG) ASPART 100 UNITS/ML 10ML VIAL ONE (17:10)
[2017-07-28] MEDS: INSULIN (NOVOLOG) ASPART 100 UNITS/ML 10ML VIAL SQ SCH (17:23)
[2017-07-28] MEDS: RANITIDINE HCL 150 MG TABLET (FP) PO SCH (21:41)
[2017-07-28] MEDS: FLUTICASONE/SALMETEROL 100 MCG/50 MCG DISKUS IH SCH (21:41)
[2017-07-28] MEDS ORDERED: ATORVASTATIN CA 40 MG TABLET (FP) PO SCH (22:00)
[2017-07-29] MEDS: INSULIN (NOVOLOG) ASPART 100 UNITS/ML 10ML VIAL SQ SCH (06:56)
[2017-07-29] MEDS ORDERED: INSULIN DETEMIR 100 UNITS/ML MDV SQ SCH (07:00)
[2017-07-29] MEDS ORDERED: sitaGLIPtin PHOSPHATE 100 MG TABLET (FP) PO SCH (07:00)
[2017-07-29] MEDS ORDERED: PT OWN MED DRAWER 7, Y5N ONE (09:19)
[2017-07-29 09:27] VITALS: BP 125/61; PULSE 71; TEMP 98.1
[2017-07-29] MEDS: FLUTICASONE/SALMETEROL 100 MCG/50 MCG DISKUS IH SCH (09:28)
[2017-07-29] MEDS: RANITIDINE HCL 150 MG TABLET (FP) PO SCH (09:28)
[2017-07-29] MEDS ORDERED: LOSARTAN POTASSIUM 50 MG TABLET (FP) PO SCH (10:00)
[2017-07-29] MEDS ORDERED: GABAPENTIN 300 MG CAPSULE (FP) PO SCH (10:00)
[2017-07-29] MEDS ORDERED: CALCIUM 500MG/VIT-D 200 UNITS COMBO TABLET (FP) PO SCH (10:00)
[2017-07-29] MEDS ORDERED: NEBIVOLOL 5 MG TABLET (FP) PO SCH (10:00)
[2017-07-29] MEDS ORDERED: ASPIRIN 81 MG CHEWABLE TABLETS PO SCH (10:00)
== END 2017-07-29 10:20 | disposition home or self-care (01) | DRG 690 ==
LOC: JER 14:10 → JERBED 18:59 → J6S 07-28 14:57
PROVIDERS: ADMIT Internal Medicine; ATTEND Internal Medicine
DX: N39.0 Urinary tract infection, site not specified (principal); I25.10 Atherosclerotic heart disease of native coronary artery without angina pectoris; E11.9 Type 2 diabetes mellitus without complications; I10 Essential (primary) hypertension; Z88.0 Allergy status to penicillin; Z79.4 Long term (current) use of insulin; Z98.61 Coronary angioplasty status
CPT/HCPCS: 36415; 74018-TC-FY; 80053; 81003; 81015; 82962; 83690; 85025; 87086; 93005; 93010; 99285-25

== ENCOUNTER 2020-02-21 08:08 | Emergency (ER) | payer OTHER ==
[2020-02-21 08:16] VITALS: TEMP 97.6; BMI 28.3
--- OUTSIDE RECORDS SUMMARY | 2020-02-21 08:20 | XMS ---
:1950 Author Organization [facility] Care Team Providers Name Role Phone Luryley, Deborah Unavailable Unavailable Lufrano, Deborah Unavailable Unavailable Lufrano, Deborah Unavailable Unavailable Lufrano, Deborah Unavailable Unavailable Lufrano, Deborah Unavailable Unavailable Lufrano, Deboarh Unavailable Unavailable Lufrano, Deborah Unavailable Unavailable Re-disclosure Warning The records that you are about to access may contain information from federally- assisted alcohol or drug abuse programs. If such information is present, then the following federally mandated warning applies: This information has been disclosed to you from records protected by federal confidentiality rules (42 CFR part 2). The federal rules prohibit you from making any further disclosure of this information unless further disclosure is expressly permitted by the written consent of the person to whom it pertains or as otherwise permitted by 42 CFR part 2. A general authorization for the release of medical or other information is NOT sufficient for this purpose. The Federal rules restrict any use of the information to criminally investigate or prosecute any alcohol or drug abuse patient.The records that you are about to access may contain highly sensitive health information, the redisclosure of which is protected by Article 27-F of the [facility] Public Health law. If you continue you may haveaccess to information: Regarding HIV / AIDS; Provided by facilities licensed or operated by the [facility] Office of Mental Health; or Provided by the [facility] Office for People With Developmental Disabilities. If such information is present, then the following [facility] mandated warning applies: This information has been disclosed to you from confidential records which are protected by state law. State law prohibits you from making any further disclosure of this information without the specific written consent of the person to whom it pertains, or as otherwise permitted by law. Any unauthorized further disclosure in violation of state law may result in a fine or nursing home sentence or both. A general authorization for the release of medical or other information is NOT sufficient authorization for further disclosure. Encounters Encounter Providers Location Date Indications Data Source(s ) Attender: Deborah 11/08/2019 [facility] ([facility] katelin Leal Lufrano 12:00:00 AM EDT Medical, ) Office Attender: Deborah Marley 11/08/2019 12:00:00 AM EDT [facility] ([facility], ) Office Medications Medication Brand Start Product Dose Route Administrative Pharmacy [facility] Indications Reaction Description Data Name Date Form Instructions Instructions Source(s) gabapentin GABAPE 11/07/ CAPSULE 30 complet TO PENTIN [facility] (St 300 MG Oral NTIN:3 2019 ed Power's Capsule 74837 12:00: Medical, GABAPENTIN: 00 AM PC) [id number] EDT Glipizide GLIPIZ 11/07/ TABLET 30 complet GLIPIZ JOEL [facility] (St 10 MG Oral JOEL:31 2019 ed Power's Tablet 0488 12:00: Medical, GLIPIZIDE:3 00 AM PC) 60349 EDT Losartan LOSART 11/07/ TABLET 30 complet LOSARTA N [facility] (St Potassium AN 2019 ed POTASSIUM Power' s 50 MG Oral POTASS 12:00: Medic al, Tablet IUM:97 00 AM PC) LOSARTAN 9492 EDT POTASSIUM:9 09435 Insulin INSULI 11/07/ SOLUTION 1 complet INSULI N [facility] (St Lispro 100 N 2019 ed LISPRO Power's UNT/ML LISPRO 12:00: Medical, Injectable :26372 00 AM PC) Solution 0 EDT INSULIN LISPRO:2421 20 Aspirin 81 ASPIRI // DELAYED 30 complet ASPI RIN [facility] (St MG Delayed N:3084 2020 RELEASE ed Power 's Release 16 12:00: TABLET Medical, Oral Tablet 00 AM PC) ASPIRIN:308 EDT 416 Insulin LANTUS 20/ SOLUTION 30 complet LANTUS [facility] (St Glargine :41752 2019 ed Power's 100 UNT/ML 8 12:00: Medical , Injectable 00 AM PC) Solution EDT [Lantus] LANTUS:2850 18 atorvastati ATORVA 07/20/ TABLET 30 complet ATOR VASTATIN [facility] (St n 40 MG STATIN 2019 ed Power's Oral Tablet :72976 12:00: Medi radha, ATORVASTATI 1 00 AM PC) N:784040 EDT SUPREP 11/07/ LIQUID 1 complet SUPREP ALEXX L [facility] (St BOWEL PREP 2019 ed PREP KIT Power' s KIT:4719420 12:00: Medica l, 00 AM PC) EDT nebivolol 5 BYSTOL 11/07/ TABLET 30 complet BYST OLIC [facility] (St MG Oral IC:751 2019 ed Power's Tablet 623 12:00: Medical, [Bystolic] 00 AM PC) BYSTOLIC:75 EDT 1623 Cholestyram CHOLES 10/03/ POWDER 30 complet CHOL ESTYRAMI [facility] (St ine Resin TYRAMI 2020 FOR ed NE LIGHT Power 's 66.7 MG/ML NE 12:00: RECONSTI PACKETS Medical, Oral LIGHT 00 AM TUTION PC) Suspension PACKET EDT CHOLESTYRAM S:8489 INE LIGHT 43 PACKETS:[phone] Insurance Providers Payer name Policy type Policy ID Covered Covered libertarian's Policy P bijan / Coverage libertarian ID relationship to [place] Inf ormation type [place] MEDICAID [id number] SP [id number] [facility] DUAL [id number] SP [id number] COMPLETE ABDOUL MEDICARE [id number] SP [id number] RADNOR [id number] 1 [id number] [employer]ALTH[employer]ARE COMMUN[employer]AN [place] MEDICA[place] OF [id number] 1 [id number] [place] Problems, Conditions, and Diagnoses Code Display Name Description Problem Type Effective Dates Data Source(s) R10.84 Generalized GENERALIZED Problem 11/08/2019 [facility] (St abdominal pain ABDOMINAL PAIN 12:00:00 AM EDT Yudelka Gonsales, PC) R19.4 Change in bowel CHANGE IN BOWEL Problem 10/04/2019 [facility] EN (St habit HABIT 12:00:00 AM EDT Elvis treviño PC) Surgeries/Procedures Procedure Description Date Indications Data Source(s) Documentation of current 11/08/2019 [facility] ([facility] medications (procedure) 12:00:00 AM EDT Jack villela PC) OFFICE CONSULTATION 11/08/2019 [facility] ( [facility] NEW/ESTAB PATIENT 40 MIN 12:00:00 AM EDT Ilda, PC) Documentation of current 10/04/2019 [facility] ([facility] medications (procedure) 12:00:00 AM EDT Jack villela, PC) Documentation of current 10/04/2019 [facility] ([facility] medications (procedure) 12:00:00 AM EDT M manohar PC) Documentation of current 10/04/2019 [facility] ([facility] medications (procedure) 12:00:00 AM EDT martyical PC) Documentation of current 10/04/2019 [facility] ([facility] medications (procedure) 12:00:00 AM EDT manohar PC) PHYSICIAN TELEPHONE 10/04/2019 [facility] ( [facility] EVALUATION 5-10 MIN 12:00:00 AM EDT Medic al, PC) Results ID Date Data Source [id number] 09/28/2019 02:25:00 PM EDT [facility] Name Value Range Interpretation Description Data Sup porting Code Source(s) Document(s ) SARS [facility] CORONAVIRUS 2 RNA This lab was ordered by [facility] and reported by [facility]. ID Date Data Source [id number] 09/25/2019 03:30:00 PM EDT [facility] Name Value Range Interpretation Description Data Sup porting Code Source(s) Document(s ) SARS [facility] CORONAVIRUS 2 RNA This lab was ordered by [facility] and reported by [facility]. ID Date Data Source [id number] 09/23/2019 05:13:00 PM EDT [facility] Name Value Range Interpretation Description Data Sup porting Code Source(s) Document(s ) SARS [facility] CORONAVIRUS 2 RNA This lab was ordered by [facility] and reported by [facility]. ID Date Data Source [id number] 09/20/2019 05:30:00 AM EDT [facility] Name Value Range Interpretation Description Data Sup porting Code Source(s) Document(s ) SARS [facility] CORONAVIRUS 2 RNA This lab was ordered by [facility] and reported by [facility]. Procedure Social History Code Duration Value Status Description Data Source(s ) Smoking 11/08/2019 born in [place]. completed born in [place]. Came M AJ ([facility] 12:00:00 AM EDT Came [place] 22 [place] [facility], PC) Years ago Non ago Non Smoker Non Smoker Non Drinker No Drug Use Drinker No Drug Use Smoking 11/08/2019 Unknown if ever completed Unknown if ever [facility] ([facility] 12:00:00 AM EDT smoked smoked [facility]) Vital Signs ID Date Data Source UNK Name Value Range Interpretation Code Description Data Source(s) Heart rate 75 /min 75 /min [facility] ([facility]) Inhaled oxygen 97 % 97 % [facility] Body mass index 27.2 kg/m2 27.2 kg/m2 [facility] (S (BMI) [Ratio] [facility]) Diastolic blood 72 mm[Hg] 72 mm[Hg] [facility] (S t pressure [facility]) Systolic blood 122 mm[Hg] 122 mm[Hg] [facility] ([facility]) Body weight 149 lb 149 lb [facility] ([facility]) Body height 62 in 62 in [facility] ([facility])
--- NOTE | 2020-02-21 08:47 | PDOC ---
History of Present Illness - General Chief Complaint: Pain Stated Complaint: ABD PAIN Time Seen by Provider: 02/21/20 08:17 - History of Present Illness Initial Comments: 69yo F with PMHx of HTN, HLD, IDDM, hepatic steatosis, and recent hospital admission for colitis in 09/2019 who presents with epigastric pain. The pain started last night around 10pm and has since progressed. The pain is epigastric in nature, located directly under the xiphoid process and sometimes it radiates upward under the sternum. Patient said that she experienced this type of pain about 2-3 years ago, but she stayed in bed and it resolved without intervention. Today, the pain was bad enough for her to come to the ED. Patient further endorsed back pain located approximately in the central scapula, which is also new onset. Has not eat today and has not taken any of her home meds. Home meds: - bystolic 5mg daily - atorvastatin 40mg daily - losartan 50mg daily - ASA 81 daily - glipizide 10mg BID - gabapentin 300mg TID - lantus pen 60 units daily - humalog [address] Power Rodriguez Past History - Medical History Allergies/Adverse Reactions: Allergies Allergy/AdvReac Type Severity Reaction Status Date / Time Penicillins Allergy Severe Swelling Verified 02/21/20 08:10 amoxicillin Allergy Verified 02/21/20 08:10 Home Medications: Ambulatory Orders Aspirin [ASA -] 81 mg PO DAILY 05/12/17 Gabapentin 300 mg PO TID 05/12/17 Nebivolol [Bystolic -] 5 mg PO DAILY 05/12/17 Atorvastatin Ca [Lipitor] 40 mg PO HS tablet 07/29/17 Losartan Potassium [Cozaar -] 50 mg PO DAILY tablet 07/29/17 Glipizide 10 mg PO BID 09/20/19 Insulin Glargine,Hum.rec.anlog [Lantus] 60 unit SQ HS 09/20/19 Insulin Lispro [Humalog] 10 unit SQ BID 09/20/19 COPD: No DVT: No Diabetes: Yes HTN: Yes Hypercholesterolemia: Yes - Psycho-Social/Smoking History Smoking History: Never smoked Have you smoked in the past 12 months: No - Substance Abuse Hx (Audit-C & DAST Scrn) How often the patient has a drink containing alcohol: Never Score: In Men: 4 or > Positive; In Women: 3 or > Positive: 0 Screen Result (Pos requires Nsg. Audit-10AR): Negative In the last yr the pt used illegal drug/Rx for NonMed reason: No Score: Yes response is considered Positive: 0 Screen Result (Positive result requires Nsg. DAST-10): Negative Review of Systems - Review of Systems Comments:: Constitutional: denied fevers, chills, diaphoresis HEENTM: denied headaches, changes in vision/hearing/tasting/smelling, runny nose, sore throat Respiratory: denied SOB, CP Cardiac: denied palpitations, dizziness Abdomen/GI: endorsed severe epigastric pain with occasional upward radiation, denied noticeable flatulence/burping, denied NVDC : denied dysuria, urinary frequency/urgency MSK: endorsed R upper back pain, denied joint pain/swelling/stiffnesss *Physical Exam - Vital Signs Last Vital Signs Temp Pulse Resp BP Pulse Ox 97.6 F 64 16 138/55 L 100 02/21/20 08:11 02/21/20 08:11 02/21/20 08:11 02/21/20 08:11 02/21/20 08:11 - Physical Exam GENERAL: [place] Female, appears younger than stated age, thin body habitus, AAOx4 showing signs of acute distressdue to pain HEAD: Normal with no signs of trauma, no [place] teeth EYES: PERRL, extraocular movements intact bilaterally EARS, NOSE, THROAT: moderately dry mucous membranes NECK: No lymphadenopathy or masses noted LUNGS: CTAB. No wheezes, and no crackles. No accessory muscle use HEART: RRR, normal S1 and S2 without murmur ABDOMEN: Soft, nontender on palpation - pain mildly improves with pressure, not distended/protuberant, active bowel sounds EXTREMITIES: 2+ radial pulses, dorsalis pedis pulses not palpable, warm to touch bilaterally, nontender to palpation, no peripheral edema appreciated, no active lesions or ulcers noted on feet bilaterally including interdigital web spaces NEUROLOGICAL: Cranial nerves II-XII grossly intact. Normal speech with symmetricalfacial movements. Sensation intact bilaterally PSYCHIATRIC: Cooperative and interactive, responds appropriately. Good eye contact. Appropriate affect given pain SKIN: Warm, no rashes or lesions noted ED Treatment Course - LABORATORY CBC & Chemistry Diagram: 02/21/20 09:45 02/21/20 09:13 Medical Decision Making - Medical Decision Making 69yo F with PMHx of HTN, HLD, IDDM, hepatic steatosis, and recent hospital admission for colitis in 09/2019 who presents with epigastric pain. - CBC - CMP - trop - lipase - lactic acid - EKG - CXR - pepcid - tylenol - mylanta - abdomen/pelvis CT without contrast 02/21/20 12:44 > CT of abdomen showed abnormal stomach suggestive of gastroenteritis - patient will need GI follow up > lactic acid 0.8, troponin < 0.02 > gave crackers and water - patient is tolerating well > patient's symptoms improved after medications Discharge - Discharge Information Problems reviewed: Yes Clinical Impression/Diagnosis: Epigastric abdominal pain, Back pain Condition: Stable - Admission No - Follow up/Referral Referrals: Michael Steve MD [Primary Care Provider] - Bebeto Rasheed MD [Staff Physician] - [facility] [place] [Provider Group] - Patient Discharge Instructions Additional Instructions: You came to the emergency department because you were experiencing pain in your upper belly. We gave you some medications to help you feel better, and we did some labs and imaging. Your CT scan showed an abnormal belly suggestive of gastroenteritis. We will be sending you home with a medication called ondansetron, which you can take if you start experiencing nausea. You can also take kutr-asf-zxbmcme pepcid and tylenol if your symptoms continue to bother you. Please make sure to see your primary care doctor and stomach doctor (radioisotope production operator) within the next 72 hours. We are referring you to our [facility] clinic for primary care and Dr. Rasheed for gastroenterology. If you are experiencing worsening symptoms such as chest pain, difficulties breathing, or worsening in your pain, please call 911 or go to your nearest emergency department for immediate medical attention. FOODS TO AVOID: FRIED, SPICY, FATTY, ALCOHOL, CHOCOLATE, COFFEE, ANUPAMA, CAFFEINE, TOMATOES MEDICATIONS TO AVOID: IBUPROFEN, ADVIL, ALEVE Print Language: BELARUSIAN - Post Discharge Activity
[2020-02-21] MEDS ORDERED: MAG HYDROX/AL HYDROX/SIMETH 30 ML UNIT-DOSE CUP PO ONE (09:11)
[2020-02-21] MEDS ORDERED: ACETAMINOPHEN 1000 MG/100 ML VIAL (NON FORMULARY) IVPB ONE (09:11)
[2020-02-21] MEDS ORDERED: FAMOTIDINE 20 MG/50 ML IVPB 20 MG/50 ML MG IVPB ONE ×2 (09:11→09:51)
[2020-02-21] MEDS ORDERED: ACETAMINOPHEN INJECTION 100 ML IVPB ONE (09:50)
[2020-02-21] MEDS ORDERED: MAG HYDROX/AL HYDROX/SIMETH 30 ML UNIT-DOSE CUP ONE (09:50)
[2020-02-21 10:08] LABS: BASO % 0.6 % (0-2.0); EOS % 0.6 % (0-4.5); HEMATOCRIT 36.5 % (32.4-45.2); HEMOGLOBIN 11.9 GM/dL (10.7-15.3); LYMPH % 23.8 % (8-40); MCH 31.2 pg (25.7-33.7); MCHC 32.7 g/dl (32.0-36.0); MEAN CELL VOLUME 95.4 fl (80-96); MEAN PLT VOLUME 8.3 fl (7.5-11.1); MONO % 5.6 % (3.8-10.2); NEUT % 69.4 % (42.8-82.8); PLATELET COUNT 322 K/MM3 (134-434); RBC 3.83 M/mm3 (3.60-5.2); RDW 13.3 % (11.6-15.6); WHITE BLOOD COUNT 7.2 K/mm3 (4.0-10.0)
--- NOTE | 2020-02-21 10:16 | PDOC ---
Documentation entered by Guillermo Rzio SCRIBE, acting as scribe for Peter Rosenbaum MD. Peter Rosenbaum MD: This documentation has been prepared by the Darrius kim Xhesika, SCRIBE, under my direction and personally reviewed by me in its entirety. I confirm that the documentation accurately reflects all work, treatment, procedures, and medical decision making performed by me. Attending Attestation - Resident Resident Name: Magdalena Estrella - ED Attending Attestation I have performed the following: I have examined & evaluated the patient, The case was reviewed & discussed with the resident, I agree w/resident's findings & plan, Exceptions are as noted - HPI HPI: 02/21/20 09:34 69y/o F with a pmh of HTN, HLD, and IDDM who presents to the ED for epigastric pain associated with mild nausea since yesterday. Pt states she was recently admitted for colitis. Pt denies CP, SOB, fevers, chills, v/d. Pt denies any hemtaturia, dysuria, frequency or urgency. Allergies: PCN, amoxicillin PCP: Tarah Shelton - Physicial Exam PE: 02/21/20 09:35 Vitals: Triage Vital signs reviewed General Appearance: no acute distress, well nourished well developed, Chest Wall: Nontender Cardiac: Regular rate and rhythm, no murmurs, no rubs, no gallops, Lungs: Clear to auscultation bilateral, good air movement bilaterally, Abdomen: Soft, nondistended, normal bowel sounds, nontender to palpation Extremities: Full range of motion to all extremities, no cyanosis, clubbing, or edema Skin: Warm and dry, no rashes or lesions, no petechiae Neuro: AOX3; Cranial Nerves 2-12 grossly c intact, Strength intact to all extremities, Sensation intact to all extremities Psych: normal mood, normal affect - Medical Decision Making 02/28/20 17:40 CT abdomen pelvis 6 demonstrates gastroenteritis. Labs within normal limits. Patient now tolerating fluids by mouth Findings, the need for follow-up and strict return instructions discussed with patient. Discharge - Discharge Information Problems reviewed: Yes Clinical Impression/Diagnosis: Epigastric abdominal pain Condition: Stable Disposition: HOME - Additional Discharge Information Prescriptions: Ondansetron HCl [Zofran] 8 mg PO BID PRN 4 Days #8 tablet PRN Reason: Nausea - Follow up/Referral Referrals: [facility] [place] [facility] [place] [Provider Group] Michael Steve MD [Primary Care Provider] - Bebeto Rasheed MD [Staff Physician] - - Patient Discharge Instructions Additional Instructions: You came to the emergency department because you were experiencing pain in your upper belly. We gave you some medications to help you feel better, and we did some labs and imaging. Your CT scan showed an abnormal belly suggestive of gastroenteritis. We will be sending you home with a medication called ondansetron, which you can take if you start experiencing nausea. You can also take [id number]-[id number] pepcid and tylenol if your symptoms continue to bother you. Please make sure to see your primary care doctor and stomach doctor (produce runner) within the next 72 hours. We are referring you to our [facility] clinic for primary care and Dr. Rasheed for gastroenterology. If you are experiencing worsening symptoms such as chest pain, difficulties breathing, or worsening in your pain, please call 911 or go to your nearest e mergency department for immediate medical attention. FOODS TO AVOID: FRIED, SPICY, FATTY, ALCOHOL, CHOCOLATE, COFFEE, ANUPAMA, CAFFEINE, TOMATOES MEDICATIONS TO AVOID: IBUPROFEN, ADVIL, ALEVE Print Language: HEBREW - Post Discharge Activity
[2020-02-21 10:26] LABS: CHLORIDE 105 mmol/L (98-107); POTASSIUM 4.3 mmol/L (3.5-5.1); SODIUM 139 mmol/L (136-145)
[2020-02-21 10:28] LABS: ALBUMIN 3.8 g/dl (3.4-5.0); ANION GAP 4 MMOL/L (8-16); BLOOD UREA NITROGEN 9.9 mg/dL (7-18); CALCIUM 9.3 mg/dL (8.5-10.1); CO2 29 mmol/L (21-32); LIPASE 164 U/L (73-393)
[2020-02-21 10:29] LABS: GLUCOSE,RANDOM 142 mg/dL (74-106); MAGNESIUM 2.4 mg/dL (1.8-2.4)
[2020-02-21 10:31] LABS: CREATININE 0.7 mg/dL (0.55-1.3); SGOT/AST 27 U/L (15-37); SGPT/ALT 37 U/L (13-61)
[2020-02-21 10:33] LABS: BILIRUBIN,TOTAL 0.3 mg/dL (0.2-1); TOT PROT 8.6 g/dl (6.4-8.2)
[2020-02-21 10:34] LABS: ALK PHOS 63 U/L (45-117)
[2020-02-21 13:56] VITALS: BP 117/67; PULSE 67
--- NOTE | 2020-02-21 15:16 | EKG ---
Test Reason : Blood Pressure : / mmHG Vent. Rate : 060 BPM Atrial Rate : 060 BPM P-R Int : 150 ms QRS Dur : 074 ms QT Int : 416 ms P-R-T Axes : 040 015 031 degrees QTc Int : 416 ms NORMAL SINUS RHYTHM NORMAL ECG WHEN COMPARED WITH ECG OF 25-SEP-2019 02:38, T WAVE INVERSION NO LONGER EVIDENT IN INFERIOR LEADS Confirmed by CIARA JIANG MD ([id number]) on 02/21/2020 3:15:53 PM Referred By: Confirmed By:CIARA JIANG MD
== END 2020-02-21 13:56 | disposition home or self-care (01) ==
LOC: JER 08:08
PROC: 3E0333Z Introduction of Anti-inflammatory into Peripheral Vein, Percutaneous Approach (ICD-10-PCS; principal; 2020-02-21)
PROC: 3E033GC Introduction of Other Therapeutic Substance into Peripheral Vein, Percutaneous Approach (ICD-10-PCS; 2020-02-21)
DX: R10.13 Epigastric pain (principal); M54.5 Low back pain
CPT/HCPCS: 36415; 71045-TC-FY; 74177-TC; 80053; 82550; 83605; 83690; 83735; 84484; 85025; 93005; 93010; 99285-25; J0131; Q9967